=== PATIENT | female | born 1935 | race Caucasian/White ===

== ENCOUNTER 2017-01-26 13:02 | Outpatient (CLI) | payer MEDICARE, BC ==
--- NOTE | 2017-01-26 15:25 | Mammography Report ---
DIGITAL DIAGNOSTIC BILATERAL MAMMOGRAM: 01/26/2017 CLINICAL INDICATION: An 81-year-old with perceived size increase of the left breast. COMPARISON: The patient had previous mammograms in [place], but cannot recall where they were perform ed. If records in your office indicate where the mammograms were performed, we would be happy to try to obtain them for direct comparison. Otherwise, this will serve as a new baseline. TECHNIQUE: Bilateral CC and MLO views, left true lateral view. The patient could not identify a focal palpable abnormality at the time of the examination, so no marker was placed. The patient also relates a history of benign excisional biopsy of the right breast many years ago. FINDINGS: The breasts demonstrate scattered fibroglandular densities bilaterally. A few punctate, ty pically benign calcifications are present. No suspicious masses, clustered microcalcifications, or re gions of architectural distortion are identified. IMPRESSION: BENIGN FINDINGS. RECOMMENDATION: ROUTINE ANNUAL SCREENING UNLESS OTHERWISE CLINICALLY INDICATED. BIRADS CATEGORY 2-BENIGN FINDINGS. STANDARD QUALIFYING STATEMENTS 1. This examination was reviewed with the aid of Computer-Aided Detection (CAD). 2. A negative or benign imaging report should not delay biopsy if clinically suspicious findings are present. Consider surgical consultation if warranted. More than 5% of cancers are not identified by i maging. 3. Dense breasts may obscure an underlying neoplasm. JOB #: [id number] EXT JOB #:
== END 2017-01-26 13:03 | disposition home or self-care (01) ==
LOC: DI 13:02
PROVIDERS: ATTEND Internal Medicine
DX: N64.4 Mastodynia (principal); N64.59 Other signs and symptoms in breast
CPT/HCPCS: 77066

== ENCOUNTER 2017-04-06 16:52 | Outpatient (CLI) | payer MEDICARE, BC ==
--- NOTE | 2017-04-07 19:47 | XRAY Report ---
DATE OF SERVICE: 04/06/2017 BILATERAL SACROILIAC JOINTS: 04/06/2017 CLINICAL INDICATION: Pain for 2 weeks. FINDINGS: AP and bilateral oblique views of the sacroiliac joints were obtained. There is no eviden ce of sacral fracture. The sacroiliac joints appear unremarkable. No erosion or effusion is identified. Degenerative changes are noted in the lower lumbar spine. IMPRESSION: Normal sacroiliac joints. TD: 04/07/2017 09:51
== END 2017-04-06 16:53 | disposition home or self-care (01) ==
LOC: DI 16:52
PROVIDERS: ATTEND Nurse Practitioner Family
DX: M54.5 Low back pain (principal)
CPT/HCPCS: 72202

== ENCOUNTER 2018-02-14 13:25 | Outpatient (CLI) | payer MEDICARE, BC | END 2018-02-14 13:26 | disposition home or self-care (01) | LOC: SC 13:25 | PROVIDERS: ATTEND Internal Medicine Pulmonary Disease | DX: G47.33 Obstructive sleep apnea (adult) (pediatric) (principal) | CPT/HCPCS: 99203; G0463; 99212 ==

== ENCOUNTER 2018-03-21 19:08 | Outpatient (CLI) | payer MEDICARE, BC | END 2018-03-21 19:09 | disposition home or self-care (01) | LOC: SC 19:08 | PROVIDERS: ATTEND Internal Medicine Pulmonary Disease | DX: G47.33 Obstructive sleep apnea (adult) (pediatric) (principal); G47.61 Periodic limb movement disorder | CPT/HCPCS: 95810 ==

== ENCOUNTER 2018-04-26 14:07 | Outpatient (CLI) | payer MEDICARE, BC | END 2018-04-26 14:08 | disposition home or self-care (01) | LOC: SC 14:07 | PROVIDERS: ATTEND Nurse Practitioner Family | DX: G47.33 Obstructive sleep apnea (adult) (pediatric) (principal); G47.61 Periodic limb movement disorder; I49.9 Cardiac arrhythmia, unspecified | CPT/HCPCS: 99214; G0463; 99212 ==

== ENCOUNTER 2018-06-27 12:57 | Outpatient (CLI) | payer MEDICARE, BC | END 2018-06-27 12:58 | disposition home or self-care (01) | LOC: DI 12:57 | PROVIDERS: ATTEND Internal Medicine | DX: I10 Essential (primary) hypertension (principal) | CPT/HCPCS: 93306 ==

== ENCOUNTER 2018-08-08 14:22 | Outpatient (CLI) | payer MEDICARE, BC | END 2018-08-08 14:23 | disposition home or self-care (01) | LOC: SC 14:22 | PROVIDERS: ATTEND Internal Medicine Pulmonary Disease | DX: G47.33 Obstructive sleep apnea (adult) (pediatric) (principal) | CPT/HCPCS: 99213; G0463; 99212 ==

== ENCOUNTER 2019-04-24 10:18 | Outpatient (CLI) | payer MEDICARE, BC ==
--- NOTE | 2019-04-24 16:12 | Mammography Report ---
Reason: LUMP IN LT BREAST Procedure Date: 04/24/2019 Accession Number: [id number] / [id number] Procedure: MICHAEL - Diagnostic Dig Bilat CPT Code: Final Report FULL RESULT: EXAM: Diagnostic Dig Bilat DATE: 04/24/2019 10:56 AM CLINICAL HISTORY: Diagnostic examination. Palpable lump in the left breast. TECHNIQUE: (B) - Bilateral CC and MLO views were obtained. Left spot CC and left LM images as well as left spot MLO images are obtained. Focused left breast ultrasound is performed. COMPARISON: 01/26/2017. PARENCHYMAL PATTERN: (A) - The breast(s) demonstrate(s) scattered fibroglandular densities. FINDINGS: In the left breast inferomedially, 7.9 cm from the nipple is a hyperdense spiculated mass with architectural distortion which measures at least 2.0 x 2.2 cm and is confirmed by focused left breast ultrasound which demonstrates a shadowing ill-defined hypoechoic mass with increased vascularity, highly suspicious for malignancy. There are no suspicious masses, calcifications, or areas of distortion in the right breast. IMPRESSION: Highly suggestive for malignancy. BI-RADS category 5. RECOMMENDATION: (BIOPSY) - left breast ultrasound-guided. BI-RADS CATEGORY: (5) - Highly suggestive for malignancy. STANDARD QUALIFYING STATEMENTS: 1. This examination was not reviewed with the aid of Computer-Aided Detection (CAD). 2. A negative or benign imaging report should not preclude biopsy if clinically suspicious findings are present. 3. Dense breasts may obscure an underlying neoplasm. 4. This examination was reviewed with the aid of 3D breast imaging (tomosynthesis).
== END 2019-04-24 10:19 | disposition home or self-care (01) ==
LOC: DI 10:18
PROVIDERS: ATTEND Nurse Practitioner Family
DX: N63.24 Unspecified lump in the left breast, lower inner quadrant (principal)
CPT/HCPCS: 76642; 77066

== ENCOUNTER 2019-05-09 10:58 | Outpatient (CLI) | payer MEDICARE, BC ==
[2019-05-09] MEDS ORDERED: BUFFERED LIDOCAINE 10 ML SYRINGE ONE (11:47)
[2019-05-09] MEDS ORDERED: BUFFERED LIDOCAINE 10 ML SYRINGE IU ONE (16:35)
--- NOTE | 2019-05-10 09:12 | Ultrasound Report ---
Reason: ABNORMAL MAMMOGRAM Procedure Date: 05/09/2019 Accession Number: [id number] / [id number] Procedure: US - Biopsy Breast Core CPT Code: Final Report FULL RESULT: PROCEDURE: Ultrasound-guided needle biopsy left breast mass. CLINICAL DATA: Targeted mass measuring 2.1 x 0.6 and 1.8 x 1.3 cm with irregular margins in the 6 o'clock axis of the left breast. Informed consent was obtained. Using standard aseptic technique, 1% buffered lidocaine was injected into the left breast for local anesthesia. A small delgado was made in the skin with a #11 blade. A 12-gauge [employer] vacuum-assisted device was used to obtain 3 specimens each from the main mass as well as the fingerlike projection adjacent. A specialized biopsy marker clip was placed into the biopsy cavity under ultrasound guidance. The patient was taken to separate mammography machine and a two-view digital mammography was performed to verify the clip placement and any complications. The mammography showed concordant clip placement for both positions. The wound was dressed and ice applied. The patient was observed for approximately 15 minutes, then was discharged from diagnostic imaging Department in good condition following instructions on wound care and obtaining biopsy results. The patient is scheduled to receive the biopsy results from the referring physician. The tissue was sent for histologic analysis. IMPRESSION: Ultrasound-guided biopsy of the left breast. AN ADDENDUM WILL BE MADE TO THIS REPORT WHEN PATHOLOGY IS REVIEWED TO ESTABLISH CONCORDANCE.
== END 2019-05-09 10:59 | disposition home or self-care (01) ==
LOC: DI 10:58
PROVIDERS: ATTEND Nurse Practitioner Family
DX: C50.512 Malignant neoplasm of lower-outer quadrant of left female breast (principal); Z17.1 Estrogen receptor negative status [ER-]
CPT/HCPCS: 19083

== ENCOUNTER 2019-05-21 07:39 | Outpatient (CLI) | payer MEDICARE, BC ==
[2019-05-21 08:17] LABS: BASOPHILS # (AUTO) 0.1 10^3/uL (0.0-0.1); BASOPHILS % (AUTO) 1.1 %; EOSINOPHILS # (AUTO) 0.2 10^3/uL (0.0-0.7); EOSINOPHILS % (AUTO) 2.8 %; HGB - HEMOGLOBIN 13.2 g/dL (12.0-16.0); LYMPHOCYTES # (AUTO) 1.7 10^3/uL (1.5-3.5); LYMPHOCYTES % (AUTO) 21.3 %; MEAN CORPUSCULAR HEMOGLOBIN 30.5 pg (27.0-31.0); MEAN CORPUSCULAR HGB CONC 32.6 g/dL (32.0-36.0); MEAN CORPUSCULAR VOLUME 93.5 fL (81.0-99.0); MEAN PLATELET VOLUME 8.8 fL (7.9-10.8); MONOCYTES # (AUTO) 0.7 10^3/uL (0.0-1.0); MONOCYTES % (AUTO) 9.3 %; NEUTROPHILS # (AUTO) 5.1 10^3/uL (1.5-6.6); NEUTROPHILS % (AUTO) 65.1 %; PLT - PLATELET COUNT 267 10^3/uL (130-450); RED BLOOD COUNT 4.33 10^6/uL (4.20-5.40); RED CELL DISTRIBUTION WIDTH 13.1 % (12.0-15.0); WHITE BLOOD COUNT 7.9 x10^3/uL (4.8-10.8)
[2019-05-21 08:33] LABS: ALBUMIN 4.1 g/dL (3.2-5.5); ALBUMIN/GLOBULIN RATIO 1.4 (1.0-2.2); BILIRUBIN,TOTAL 0.5 mg/dL (0.2-1.0); CALCIUM 9.3 mg/dL (8.5-10.3)
[2019-05-21] MEDS ORDERED: GADOBUTROL 7.5 MMOL/7.5 ML VIAL ONE (17:45)
[2019-05-21] MEDS ORDERED: GADOBUTROL 7.5 MMOL/7.5 ML VIAL IVP ONE (18:32)
--- NOTE | 2019-05-25 15:50 | MRI Report ---
Reason: LT BREAST CA Procedure Date: 05/21/2019 Accession Number: [id number] / [id number] Procedure: MRI - Breast W/WO Cont CPT Code: 91563 Final Report FULL RESULT: EXAM: BILATERAL BREAST MRI WITHOUT AND WITH CONTRAST WITH CHEST WITHOUT CONTRAST EXAM DATE: 05/21/2019 07:08 PM CLINICAL HISTORY: The patient is an 83-year-old female recently diagnosed with left breast cancer (IDCA - multifocal). Pretreatment MRI requested to assess extent of disease. TECHNIQUE: Body Coil: (Limited chest MRI)- Coronal LFOV STIR Dedicated breast coil: Axial - precontrast STIR Axial - postcontrast sequential 1 minute three-dimensional FLASH (x 5) Axial - high-resolution volumetric water stimulation acquisition (VIEWS) CONTRAST USED: 6 mL Gadavist. POSTPROCESSING: Subtraction dynamic/curve analysis and multiplanar reformations with CAD stream FINDINGS: Background parenchyma: There are scattered fibroglandular densities with minimal enhancement. Right breast: There is no focus of suspicious mass or non-mass enhancement, parenchymal distortion, skin thickening. There are no enlarged axillary or intramammary lymph nodes. Left breast: There are two adjacent hypervascular and spiculated masses at the sites of biopsy proven malignancy containing microclips in the 6 o'clock anterior/middle position at the sites of biopsy-proven malignancy. These span 5 cm in maximal net anterior to posterior dimension. There is additional focal clumped nonmass enhancement in the upper outer quadrant 7 cm from the nipple. This is positioned 3 cm cranial to the biopsy proven mass(es) measuring up to 5 cm in maximal dimension; reference thin MIP axial image 69. This may represent regional DCIS. Recommend targeted pathologic evaluation to exclude multicentric disease. Thereare no additional dominant foci of mass or non-mass enhancement, distortion or skin thickening. There are no pathologically enlarged axillary or intramammary lymph nodes. IMPRESSION: RIGHT BREAST: Negative. BI-RADS 1 No suspicious findings. LEFT BREAST: Known malignancy. BI-RADS 6 The biopsy-proven sites of malignancy are confirmed in the 6 o'clock position spanning 5.0 cm in net anterior to posterior dimension. There is additional focal nomass enhancement in the upper outer quadrant, as described. 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 Recommend pathologic evaluation if planning for conservation therapy. This is amenable to MRI guided biopsy. There are no pathologically enlarged axillary lymph nodes. COMMENT: The literature indicates that a negative dynamic breast MRI has a high sensitivity and specificity for the detection of invasive carcinoma (to a threshold of 5 mm). MRI is not reliably sensitive for detecting ductal carcinoma in situ or large invasive neoplasms with only minimal enhancement (i.e. mucinous carcinoma). Normal-appearing lymph nodes on MRI may contain microscopic tumor. Appropriate clinical mammographic and sonographic followup should be performed if recommended. Negative MRI should not dissuade further evaluation of any suspicious mammographic calcifications and/or worrisome palpable masses.
== END 2019-05-21 07:40 | disposition home or self-care (01) ==
LOC: DI 07:39
PROVIDERS: ATTEND Nurse Practitioner Family
DX: C50.512 Malignant neoplasm of lower-outer quadrant of left female breast (principal)
CPT/HCPCS: 36415; 77049; 80053; 85025; A9585

== ENCOUNTER 2019-05-25 09:27 | Outpatient (CLI) | payer MEDICARE, BC | END 2019-05-25 09:28 | disposition home or self-care (01) | LOC: RT 09:27 | PROVIDERS: ATTEND Surgery | DX: Z01.818 Encounter for other preprocedural examination (principal); C50.912 Malignant neoplasm of unspecified site of left female breast | CPT/HCPCS: 93005 ==

== ENCOUNTER 2019-05-28 08:09 | Day surgery (SDC) | payer MEDICARE, BC ==
[2019-05-28] MEDS ORDERED: LACTATED RINGERS 1,000 ML IV ONE ×2 (08:15→13:45)
[2019-05-28] MEDS ORDERED: CEFAZOLIN SODIUM IN 0.9 % NACL 2 GM/100 ML BAG IV ONE (08:47)
[2019-05-28] MEDS ORDERED: BUFFERED LIDOCAINE 10 ML SYRINGE ONE (09:32)
[2019-05-28] MEDS ORDERED: SODIUM CHLORIDE 0.9% 10 ML ONE (10:20)
--- NOTE | 2019-05-28 11:09 | ANESTHESIA ---
Pre-Anesthesia VS, & Labs - Diagnosis Left breast cancer - Procedure Left mastectomy with axillary sentinel lymph node dissection and right port placement Vital Signs: Temp Pulse Resp BP Pulse Ox 36.3 C L 62 18 148/77 H 97 05/28/19 08:21 05/28/19 08:21 05/28/19 08:21 05/28/19 08:21 05/28/19 08:21 Height 5 ft 1 in Weight (kg) 62.1 kg - NPO >8 hours - Is Patient ?: Not Applicable Home Medications and Allergies Home Medications: Ambulatory Orders Buspirone HCl 10 mg PO DAILY 05/25/19 Escitalopram [Lexapro] 20 mg PO DAILY 05/25/19 Losartan Potassium 25 mg PO DAILY 05/25/19 Omeprazole 20 mg PO DAILY 05/25/19 Valacyclovir HCl [Valacyclovir] 1,000 mg PO DAILY PRN 05/25/19 Buspirone HCl 10 mg PO DAILY 05/25/19 Escitalopram [Lexapro] 20 mg PO DAILY 05/25/19 Losartan Potassium 25 mg PO DAILY 05/25/19 Omeprazole 20 mg PO DAILY 05/25/19 Valacyclovir HCl [Valacyclovir] 1,000 mg PO DAILY PRN 05/25/19 Allergies/Adverse Reactions: Allergies Allergy/AdvReac Type Severity Reaction Status Date / Time No Known Drug Allergies Allergy Verified 05/25/19 11:50 Anes History & Medical History - Anesthetic History Anesthesia Complications: reports: No previous complications - Medical History Cardiovascular: reports: Murmur (ECHO was negative for valve disease) Pulmonary: reports: Sleep apnea, CPAP use Gastrointestinal: reports: GERD (controlled with medicatation) Urinary: reports: None Neuro: reports: None Musculoskeletal: reports: Osteoarthritis Endocrine/Autoimmune: reports: None Blood Disorders: reports: None Skin: reports: None Smoking Status: Former smoker (Quit 5 years ago. 32 year pack history) Psychosocial: reports: No issues indicated - Surgical History Gynecologic: Other (breast lumpectomy) Results - EKG Results EKG Comparison: Reviewed EKG - Echo Results Echo Results: Report reviewed Exam General: Alert, Oriented x3, Cooperative, No acute distress Dental: WNL Mouth Openin Fingerbreadth Neck Mobility: Normal Mallampati classification: III Thyromental Distance: greater than 6 cm Respiratory: Lungs clear, Normal breath sounds, No respiratory distress, No accessory muscle use Cardiovascular: Regular rate, Normal S1, Normal S2, No murmurs Mental/Cognitive Status: Alert/Oriented X3, Normal for patient Plan Anesthesia Type: General Consent for Procedure(s) Verified and Reviewed: Yes Code Status: Attempt Resuscitation ASA classification: 2-Mild systemic disease Is this case an emergency?: No
[2019-05-28] MEDS: LIDOCAINE 1%-EPI 1:100000 20 ML MDV ONE ×2 (11:35→12:13)
[2019-05-28] MEDS: BUPIVACAINE 0.5% PF 30 ML VIAL ONE ×2 (11:35→12:13)
[2019-05-28] MEDS ORDERED: MIDAZOLAM 2 MG/2 ML VIAL IVP ONE (11:44)
[2019-05-28] MEDS ORDERED: GLYCOPYRROLATE 1 MG/5 ML VIAL IVP ONE (11:44)
[2019-05-28] MEDS ORDERED: PROPOFOL 200 MG/20 ML VIAL IVP ONE (11:44)
[2019-05-28] MEDS ORDERED: DEXAMETHASONE 4 MG/ML VIAL IVP ONE (11:44)
[2019-05-28] MEDS ORDERED: fentaNYL 100 MCG/2 ML VIAL IVP ONE (11:44)
[2019-05-28] MEDS ORDERED: LIDOCAINE-MPF 2% 5 ML VIAL IM ONE (11:44)
[2019-05-28] MEDS ORDERED: ePHEDrine 50 MG/ML VIAL IVP ONE (11:44)
--- NOTE | 2019-05-28 13:38 | OPERATIVE REPORT ---
Operative Report - General Procedure Date: 05/28/19 Planned Procedure: Right power port placement Left sentinel node biopsy and simple mastectomy Pre-Op Diagnosis: Multifocal left breast cancer Procedure Performed: Attempted but aborted right port placement No sentinel node identified so sentinel node procedure aborted. Left total mastectomy Post Op Diagnosis: Multifocal left breast cancer - Procedure Note Primary Surgeon: Khushbu Anesthesia Provider: LISA Santiago Anesthesia Technique: General LMA, Local Estimated Blood Loss (mL): 20 Drain/Tube Type: Lawrence drain (19F in the inframmary pocket on the left side) Indications: Multifocal left breast cancer Findings: 1. Right subclavian vein accessed one time. The stick was lost while placing the wire and could not be reobtained after multiple attempts. Procedure aborted 2. No sentinel node identified. Complications: Unable to complete port placement - Other Other Information/Narrative: After obtaining informed consent, the patient is brought to the operating room and placed in the supine position on the operating table. Following successful induction of general anesthesia, appropriate padding of all bony prominences, and placement of appropriate monitors, the bilateral chest and neck were prepped and draped in the standard surgical fashion. A timeout was held per scope protocol. All elements of the surgical safety checklist were followed before, during, and after the procedure. Began the procedure by placement of a right Port-A-Cath. The subclavian vein was accessed using the Seldinger technique in the right deltopectoral deltopectoral groove. A pocket was created for placement of the wire 3 cm inferior to the access site. The port was sewn into place in the pocket and the tubing threaded through to the site of the wire. As the wire was withdrawn for placement of the catheter the stick was lost. Multiple attempts were undertaken to get access back to the subclavian vein but these were unsuccessful. We elected to abort the procedure for patient safety and will plan to repeat in 2 to 3 weeks when she is healing from her mastectomy. The port was removed, the incisions were closed in 2 layers and Dermabond was applied. We turned our attention to the left side Using the neoprobe, we attempted to map the lymphatic system even though we were not able to see any evidence of sentinel node on the nuclear medicine study. We did obtain a few readings from the mid chest area. The axilla was 0 and the neck and supraclavicular region also a rating of 0. The tumor itself had a 1 second reading of 1800. Background in the room was 0. Because this procedure did not identify a sentinel node, this portion of the planned surgical intervention was aborted. We continued now with a left mastectomy. An elliptical incision was fashioned to include the nipple areolar complex on the left side. A 10 blade scalpel was used to take this incision through the skin and into the subcutaneous tissue. Traction and countertraction were used to liberate the breast and underlying tissue from the overlying dermis and skin in a circumferential fashion. Dissection planes were carried out to the sternum medially, the clavicle superiorly, the axilla laterally, and the inframammary fold inferiorly. The breast was then removed in a medial to lateral fashion including the axillary tail. The wound was then checked for hemostasis and irrigated with warm water. It was aspirated free of all fluid and checked once again. We were satisfied that our hemostasis was adequate, the wound was closed in layers with Vicryl sutures and the Endsorb device. Dermabond was applied to the skin. All sponge, needle, and instrument counts were correct at the conclusion of the case. The patient was allowed awaken from anesthesia without difficulty and taken to the postanesthesia care unit in good condition.
[2019-05-28] MEDS ORDERED: oxyCODONE 5 MG TABLET PO PRN (13:46)
[2019-05-28] MEDS ORDERED: SODIUM CHLORIDE FLUSH 0.9% 10 ML SYRINGE IVP PRN (13:46)
[2019-05-28] MEDS ORDERED: ONDANSETRON 4 MG/2 ML VIAL IVP PRN (13:46)
[2019-05-28] MEDS ORDERED: ACETAMINOPHEN 325 MG TABLET PO PRN (13:46)
[2019-05-28] MEDS ORDERED: HYDROmorphone 1 MG/ML CARPUJECT IVP PRN (13:46)
[2019-05-28] MEDS ORDERED: valACYclovir 500 MG TABLET PO PRN (13:58)
[2019-05-28] MEDS: HYDROmorphone 0.5 MG/0.5 ML SYRINGE ONE ×2 (14:17→14:26)
[2019-05-28] MEDS ORDERED: HYDROmorphone 0.5 MG/0.5 ML SYRINGE IVP PRN (16:42)
[2019-05-28] MEDS: SODIUM CHLORIDE FLUSH 0.9% 10 ML SYRINGE IVP SCH (17:03)
[2019-05-28] MEDS: PANTOPRAZOLE 40 MG TABLET PO SCH (17:03)
[2019-05-29] MEDS: SODIUM CHLORIDE FLUSH 0.9% 10 ML SYRINGE IVP SCH ×2 (00:05→09:54)
[2019-05-29] MEDS: PANTOPRAZOLE 40 MG TABLET PO SCH (06:46)
--- NOTE | 2019-05-29 08:16 | XRAY Report ---
Reason: placement of power port Procedure Date: 05/28/2019 Accession Number: [id number] / [id number] Procedure: FL - OR C-Arm Procedure CPT Code: Final Report FULL RESULT: EXAM: FLUOROSCOPIC GUIDANCE EXAM DATE: 05/28/2019 12:29 PM. CLINICAL HISTORY: Placement of power port. COMPARISON: None. FINDINGS: One image saved. Fluoroscopy time less than 1 second. IMPRESSION: Fluoroscopic guidance provided for placement of PowerPort. Total fluoroscopy time: Less than 1 second. Number of images: 1. RADIA
[2019-05-29] MEDS ORDERED: LOSARTAN 50 MG TABLET PO SCH (09:00)
[2019-05-29] MEDS ORDERED: busPIRone 5 MG TABLET PO SCH (09:00)
[2019-05-29] MEDS ORDERED: ESCITALOPRAM 10 MG TABLET PO SCH (09:00)
[2019-05-29 10:04] VITALS: BP 129/53
--- NOTE | 2019-05-29 12:23 | Discharge Plan ---
Discharge Plan Problem Reviewed?: Yes Disposition: 06 Home Health Service Prescriptions: traMADol [Ultram] 50 mg PO Q4-6H PRN #14 tablet PRN Reason: Pain Diet: Regular Activity Restrictions: Additional Comments (Limit the use of her left arm.) Shower Restrictions: No Driving Restrictions: Yes Plan of Treatment: Supportive care and drain management during the period of healing. Other treatment to be determined by pathology result. Assessment: Healing as expected after left mastectomy No Smoking: If you smoke, Please STOP! Call for help. Follow-up with: RUPINDER REAL ARNP [Primary Care Provider] - Roddy Ríos MD [Provider Admit Priv/Credential] -
--- NOTE | 2019-05-29 12:29 | DISCHARGE SUMMARY ---
"Discharge Summary Admit Date: 05/28/19 Discharge Date: 05/29/19 Discharging Provider: Khushbu Primary Care Provider: Mike Condition at Discharge: Stable Discharge Disposition: Home Health Service - DIAGNOSES Admission Diagnoses: Left breast cancer Discharge Diagnoses with Status of Each Condition: Left breast cancer - improved after left mastectomy - HPI History of Present Illness: Mirna is an 83 year old lady recently diagnosed with left breast cancer. Mammogram revealed a dominant mass with 3 surrounding sattelite nodules. She had a biopsy revealing an ER/MA neg and HER 2 positive malignancy. On the date of admission, she presented to the hospital for left breast mastectomy with sentinel node biopsy and port placement. - CONSULTS | PROCEDURES Consultations: Home Health Procedures: 1. Attempted right port placement - procedure aborted 2. [place] node injection and mapping. 3. Left breast simple mastectomy - HOSPITAL COURSE Hospital Course: On the morning of admission, Mirna was taken to the operating room for the referenced procedure. Right subclavian port placement was aborted for reasons delinieated in the operative report. [place] node mapping revealed to drainage to the axillary nodes so a sentinel node was not obtained at the time of the operation. Mapping with the Neoprobe in the operating room revealed weak uptake in the region of the internal thoracic chain. Simple mastectomy on the left side was uneventful. Due to generalized weakness and memory loss, I chose to keep Mirna in the hospital overnight. This morning she denies any pain. Drainage is serous. She is weak but has been able to ambulate to the bathroom without assistance. She has required assistance to ambulate in the halls. She is being discharged to her home. 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 She has a fresh wound with a drain in place that will require management. She is home bound due to her considerable weakness and the considerable taxing effort required to leave the house. I have requested Home Health services to assist with wound management and drain care. - ALLERGIES Allergies/Adverse Reactions: Allergies Allergy/AdvReac Type Severity Reaction Status Date / Time No Known Drug Allergies Allergy Verified 05/25/19 11:50 - MEDICATIONS Home Medications: Ambulatory Orders Medication Instructions Recorded Confirmed Buspirone HCl 10 mg PO DAILY 05/25/19 05/25/19 Escitalopram [Lexapro] 20 mg PO DAILY 05/25/19 05/25/19 Losartan Potassium 25 mg PO DAILY 05/25/19 05/25/19 Omeprazole 20 mg PO DAILY 05/25/19 05/25/19 Valacyclovir HCl [Valacyclovir] 1,000 mg PO DAILY PRN 05/25/19 05/25/19 traMADol [Ultram] 50 mg PO Q4-6H PRN #14 tablet 05/29/19 Home Medications Other | Comments: Allergies No Known Drug Allergies Allergy (Verified 05/25/19 11:50) Home Medications Buspirone HCl 10 mg PO DAILY 05/25/19 Escitalopram [Lexapro] 20 mg PO DAILY 05/25/19 Losartan Potassium 25 mg PO DAILY 05/25/19 Omeprazole 20 mg PO DAILY 05/25/19 Valacyclovir HCl [Valacyclovir] 1,000 mg PO DAILY PRN 05/25/19 traMADol [Ultram] 50 mg PO Q4-6H PRN #14 tablet 05/29/19 Active Medications Acetaminophen (Tylenol) 650 mg PO Q4HR PRN PRN Reason: PAIN Buspirone HCl (Buspar) 10 mg PO DAILY [facility] Last Admin: 05/29/19 09:53 Dose: Not Given Escitalopram Oxalate (Lexapro) 20 mg PO DAILY [facility] Last Admin: 05/29/19 09:53 Dose: Not Given Hydromorphone HCl (Dilaudid Inj Syringe) 0.5 mg IVP Q2HR PRN PRN Reason: PAIN Losartan Potassium (Cozaar) 25 mg PO DAILY [facility] Last Admin: 05/29/19 09:53 Dose: Not Given Ondansetron HCl (Zofran Inj) 4 mg IVP Q6H PRN PRN Reason: Nausea / Vomiting Oxycodone HCl (Roxicodone) 5 mg PO Q4HR PRN PRN Reason: PAIN Last Admin: 05/28/19 21:40 Dose: 5 mg Pantoprazole Sodium (Protonix) 40 mg PO QDAC [facility] Last Admin: 05/29/19 06:46 Dose: 40 mg Sodium Chloride (Normal Saline Flush 0.9%) 10 ml IVP 0100,0900,1700 [facility] Last Admin: 05/29/19 09:54 Dose: 10 ml Sodium Chloride (Normal Saline Flush 0.9%) 10 ml IVP PRN PRN PRN Reason: NEEDED PER PROVIDER ORDERS Valacyclovir HCl (Valtrex) 1,000 mg PO DAILY PRN PRN Reason: NEEDED PER PROVIDER ORDERS - PHYSICAL EXAM AT DISCHARGE General Appearance: positive: No acute distress, Alert Eyes Bilateral: positive: Normal inspection, PERRL, EOMI ENT: positive: ENT inspection nml Neck: positive: Nml inspection, No JVD Respiratory: positive: Chest non-tender, No respiratory distress, Breath sounds nml Cardiovascular: positive: Regular rate & rhythm Peripheral Pulses: positive: 0 Abdomen: positive: Non-tender, Nml bowel sounds Skin: positive: Color nml, Warm Extremities: positive: Non-tender Neurologic/Psychiatric: positive: Oriented x3 Physical Exam Other/Comments: Right and left chest incisions are intact with mild bruising. Skin is all vascularized and viable. Drain site is clean and the drainage is serous. - QUALITY (Female Hip Fx Only) Was patient sent home on osteoporosis medication?: No - FOLLOW UP Follow Up: Dr. Ríos in 1 week. - TIME SPENT Time Spent in Discharge (Minutes): 25"
== END 2019-05-29 14:22 | disposition home health service (06) ==
LOC: SDS 08:09 → MS2 15:44 → SDS 05-29 14:22
PROVIDERS: ATTEND Surgery
PROC: 0HTU0ZZ Resection of Left Breast, Open Approach (ICD-10-PCS; principal; 2019-05-28 09:45)
DX: C50.812 Malignant neoplasm of overlapping sites of left female breast (principal); R94.31 Abnormal electrocardiogram [ECG] [EKG]; I10 Essential (primary) hypertension; E78.5 Hyperlipidemia, unspecified; G47.30 Sleep apnea, unspecified; K21.9 Gastro-esophageal reflux disease without esophagitis; F32.9 Major depressive disorder, single episode, unspecified; R32 Unspecified urinary incontinence; R41.3 Other amnesia; Z87.891 Personal history of nicotine dependence; R01.1 Cardiac murmur, unspecified; Z17.1 Estrogen receptor negative status [ER-]
CPT/HCPCS: 19303; 36561; 78195; A9270; J0690; J1170; J7120

== ENCOUNTER 2019-05-28 08:54 | Day surgery (SDC) | payer MEDICARE, BC ==
--- NOTE | 2019-05-28 11:46 | Nuclear Medicine Report ---
Reason: LT BREAST CA Procedure Date: 05/28/2019 Accession Number: [id number] / [id number] Procedure: NM - Lymph Node Scintigraphy CPT Code: Final Report FULL RESULT: EXAM: SENTINEL LYMPH NODE RADIOTRACER INJECTION WITH IMAGING EXAM DATE: 05/28/2019 11:18 AM. CLINICAL HISTORY: Breast cancer. COMPARISON: None. TECHNIQUE: Left breast sentinel node injection was performed according to protocol with 0.4 mCi technetium 99m sulfur colloid. After appropriate delay, the patient was imaged according to the protocol. FINDINGS IMPRESSION: No axillary foci of uptake are seen compatible with sentinel nodes through 75 minutes postinjection. RADIA
--- NOTE | 2019-05-28 12:01 | POST OP PROGRESS NOTE ---
Subjective - General Procedure Date: 05/28/19 Post Op Days: 0 Procedure Performed: [place] node mapping injection - Review of Systems Wound/Incisions: positive: Other (No wounds) General: positive: No symptoms HEENT: positive: No symptoms Pulmonary: positive: No symptoms Cardiovascular: positive: No symptoms Gastrointestinal: positive: No symptoms Genitourinary: positive: No symptoms Musculoskeletal: positive: No symptoms Skin: positive: No symptoms All Other Systems: positive: Reviewed and negative - Other Other Information/Narrative: After obtaining informed consent,The patient was brought to the eye suite and placed in the supine position. The left breast was prepped and draped in the standard surgical fashion.1 mCi of technetium sulfur colloid mixed with 1% lidocaine was injected in the subareolar area in a circumferential fashion. Imaging followed for 90 minutes and did not reveal migration of the material to any david structure.The patient tolerated the procedure well and was returned to the preop holding area.
== END 2019-05-28 08:55 | disposition home or self-care (01) ==
LOC: DI 08:54
PROVIDERS: ATTEND Surgery
DX: C50.912 Malignant neoplasm of unspecified site of left female breast (principal)
CPT/HCPCS: 78195

== ENCOUNTER 2019-07-13 08:07 | Outpatient (CLI) | payer MEDICARE, BC ==
[2019-07-13 09:41] LABS: CREATININE 0.8 mg/dL (0.4-1.0)
[2019-07-13] MEDS ORDERED: GADOBUTROL 7.5 MMOL/7.5 ML VIAL ONE (09:56)
[2019-07-13] MEDS ORDERED: GADOBUTROL 7.5 MMOL/7.5 ML VIAL IVP ONE (10:49)
--- NOTE | 2019-07-13 12:57 | MRI Report ---
Reason: MEMORY IMPAIRMENT Procedure Date: 07/13/2019 Accession Number: [id number] / [id number] Procedure: MRI - Brain W/WO CPT Code: Final Report FULL RESULT: EXAM: MRI BRAIN WITHOUT AND WITH CONTRAST EXAM DATE: 07/13/2019 11:08 AM. CLINICAL HISTORY: MEMORY IMPAIRMENT. COMPARISON: None. TECHNIQUE: Multiplanar, multisequence T1-weighted and fluid-sensitive MR sequences of the brain were performed before and after administration of intravenous contrast. Sequences optimized for routine evaluation. Other: None. IV Contrast: 6 mL GADAVIST . FINDINGS: Parenchyma: No restricted diffusion. No evidence of prior large vascular territory infarct. Confluent areas of high T2 signal involving white matter of bilateral cerebral hemispheres. A mm enhancing nodule overlying right anterior frontal lobe (series 1102, image 54). Ventricles/Cisterns: Moderate enlargement of lateral ventricles. Barboza ratio 0.41. Similar prominence of sulci. No mass-effect. No midline shift. No evidence of extra-axial fluid collection. Orbits: Symmetric and unremarkable. Sella Turcica: Unremarkable. IAC: Symmetric and unremarkable. Vasculature: Normal signal flow void is seen in the major arterial structures at the skull base. The dural sinuses are patent and enhance normally. Sinuses: No acute sinus disease. Bones: No focal pathologic appearing marrow signal changes. Other: None. IMPRESSION: 1. No evidence of infarct or other acute intracranial process. 2. Severe microvascular white matter disease 3. Moderate ventriculomegaly consistent with diffuse volume loss. 4. Incidental 8 mm right frontal meningioma. No associated mass-effect. RADIA
== END 2019-07-13 08:08 | disposition home or self-care (01) ==
LOC: LAB 08:07
PROVIDERS: ATTEND Surgery
DX: C50.912 Malignant neoplasm of unspecified site of left female breast (principal); R41.3 Other amnesia; R90.82 White matter disease, unspecified; G93.89 Other specified disorders of brain
CPT/HCPCS: 36415; 70553; 82565; A9585

== ENCOUNTER 2019-08-06 16:00 | Outpatient (CLI) | payer MEDICARE, BC ==
--- NOTE | 2019-08-06 17:18 | SLEEP CARE CONSULTATION ---
Information from patient questionnaire entered by Nikki Hensley. I have reviewed and concur with the information entered by Nikki Hensley. This document represents the service I personally performed and the decisions made by me, Deepthi Jara, RN, MSN, BUSINESS ANALYTICS SPECIALIST. History of Present Illness Service Date and Time: 08/06/2019 1600 Previous diagnosis: Moderate, Obstructive Sleep Apnea-Hypopnea Syndrome AHI: 20.1 Reason for follow up: annual (patient would like to stop CPAP therapy, has not used machine since April) Equipment type: CPAP Equipment obtained from: [facility] additional information: Patient contacted office to stop CPAP therapy. Last used in April. She feels there is no benefit with use. She is still fatigued and does not want to continue. She voices no particular problem with treatment except does not want to use if no benefit. She states she used it to see if there would be less fatigue and feels she has tried it long enough. She also reports she knows fatigue could have been from her cancer but still fatigued and requiring extra sleep. Since April, she noted left breast tenderness and found a mass with self examination. Since then she had a partial mastectomy 05/28/19. Last scan showed she was cancer free. Brain scan also negative but states memory is not as good. CPAP Compliance Data - Data Reviewed with Patient Average duration of nightly device use: 6H 44M Compliance rate %: 56.7 (stopped usage in April, report from 04/11/19-05/10/19) Current pressure setting (cmH2O): 9-15 Humidity settin Heated hose settin Average residual AHI: 4.2 Average large leak: 0s Subjective Initial [place] Sleepiness Scale score: 6 Physical Exam Height: 5 ft 1 in Impression and Plan 1. Obstructive Sleep Apnea-Hypopnea Syndrome, moderate but very severe in supine position, with fair treatment compliance and good apnea control until she stopped therapy in April. On CPAP therapy, the patient noted no benefit. Thus she would like to stop therapy and wants to know how to contact [facility] regarding return of the device. I reviewed patient's sleep study results of her overall moderate apnea of 20.1 an hour with supine AHI of 63.9 and nonsupine 16.7 and mild hypoxia from events with frances oxygen saturation of 84%. I explained rationale for treatment to reduce apnea, improve sleep quality and reduce cardiovascular and cerebrovascular events was reviewed. Since her apnea is very severe supine, I advised her to avoid sleeping on her back. She prefers to sleep on her right side, but I explained how she could sleep on her back in middle of night without knowing it. Thus she was advised how to implement positional therapy using pillow positioning or use a Slumber bump belt. She would like information sent so I will have my office send AASM nonPAP treatment pamphlet and the slumberbump pamphlet. I also discussed how stopping her CPAP is her choice but I would like her to discuss with her PCP in the event her PCP wants her to resume therapy before placing a stop order. She is unsure who her primary is right now. It was Hollis at the [facility] but thinks it is Philipp now. I will have my staff check. I also advised patient to contact me if she changes her mind and would like to resume therapy in the future. For her persistent fatigue, I advised her to follow up with her PCP for further evaluation as it was not better with CPAP either to see if another medical condition needs to be ruled out. Fatigue could also be related to her depression. She agreed with plan. * Positional therapy * AASM non pap treatments / slumberbump phamphlets to be sent * Contact PCP re stopping CPAP and persistent fatigue. * Return for follow up as needed. * * Addendum- Called patient 17:10 to clarify PCP again. * Patient PCP is Philipp Mckeon who is now working at [facility] * Clarified she is to contact me after speaks to her PCP so I can write a Stop order for CPAP and rationale * This can be done when checks on her persistent fatigue and increase need for sleep. Visit Type: Telehealth Phone (to minimize Covid 19 exposure risk) Patient Location: Home Location of Provider: Home Patient agrees and consents to this telehealth visit type: Yes Patient agrees to have their insurance billed: Yes Time Spent with Patient (minutes): 10 Provider Statement: I spent 100% of the Telehealth Phone Call with the patient with greater than 50% spent counseling the patient and coordination of care.
== END 2019-08-06 16:01 | disposition home or self-care (01) ==
LOC: SC 16:00
PROVIDERS: ATTEND Nurse Practitioner Family
DX: G47.33 Obstructive sleep apnea (adult) (pediatric) (principal)

== ENCOUNTER 2020-05-23 13:54 | Outpatient (CLI) | payer MEDICARE, BC ==
--- NOTE | 2020-05-26 12:56 | Mammography Report ---
UNILATERAL RIGHT DIGITAL SCREENING MAMMOGRAM 3D/2D: 05/23/2020 CLINICAL: Routine screening. Personal history of left breast cancer. Comparison is made to exams dated: 05/09/2019 mammogram, 04/24/2019 mammogram, and 01/26/2017 mammogra m - [facility]. There are scattered fibroglandular elements in right breast. No significant masses, calcifications, or other findings are seen in the breast. There has been no significant interval change. IMPRESSION: NEGATIVE There is no mammographic evidence of malignancy. A 1 year screening mammogram is recommended. This exam was interpreted at Station ID: [id number]. NOTE: For mammograms, a report in lay terms will be sent to the patient. Approximately 15% of breast malignancies will not be visualized mammographically. In the management of a palpable breast mass, a negative mammogram must not discourage biopsy of a clinically suspicious lesion. Electronically Signed By: Nelson Rosales M.D. [facility] [place]:05/23/2020 17:37:44 ACR BI-RADS Category 1: Negative 3341F PARENCHYMAL PATTERN: (A) - The breast(s) demonstrate(s) scattered fibroglandular densities. BI-RADS CATEGORY: (1) - 1 RECOMMENDATION: (ANNUAL) - Recommend routine annual screening mammography. [id number] 1 year screening LATERALITY: (B)
== END 2020-05-23 13:55 | disposition home or self-care (01) ==
LOC: DI 13:54
PROVIDERS: ATTEND Internal Medicine
DX: Z12.31 Encounter for screening mammogram for malignant neoplasm of breast (principal); Z85.3 Personal history of malignant neoplasm of breast

== ENCOUNTER 2020-11-05 16:33 | Outpatient (CLI) | payer MEDICARE, BC | END 2020-11-05 16:34 | disposition short-term general hospital (02) | LOC: EMS 16:33 | DX: I48.91 Unspecified atrial fibrillation (principal) | CPT/HCPCS: A0425; A0427 ==

== ENCOUNTER 2021-05-27 17:14 | Outpatient (CLI) | payer MEDICARE, BC | END 2021-05-27 17:15 | disposition critical access hospital (66) | LOC: EMS 17:14 | DX: S09.90XA Unspecified injury of head, initial encounter (principal); R41.0 Disorientation, unspecified; R26.81 Unsteadiness on feet; M54.2 Cervicalgia; W01.0XXA Fall on same level from slipping, tripping and stumbling without subsequent striking against object, initial encounter; Y92.838 Other recreation area as the place of occurrence of the external cause; Z79.01 Long term (current) use of anticoagulants | CPT/HCPCS: A0425; A0427 ==

== ENCOUNTER 2021-05-27 17:42 | Emergency (ER) | payer MEDICARE, BC ==
--- NOTE | 2021-05-27 18:05 | ED Physician Documentation ---
History of Present Illness - Stated complaint Stated Complaint: GLF - Chief complaint Chief Complaint: Trauma Hd/Nk - History obtained from History obtained from: Patient - History of Present Illness Timing: Today Pain level max: 0 Pain level now: 0 - Additonal information Additional information: 85-year-old female states that she was reaching down to pet her dog when she excellently fell forward striking her forehead. She is on Eliquis at home. She states that she has some neck pain. No numbness or tingling. No loss of consciousness. Worse with movement, better with rest. Placed in a cervical collar by EMS. 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 - Present Medications Home Medications: Ambulatory Orders Medication Instructions Recorded Confirmed Buspirone HCl 40 mg PO DAILY 05/25/19 05/27/21 Escitalopram [Lexapro] 20 mg PO DAILY 05/25/19 05/27/21 Losartan Potassium 25 mg PO DAILY 05/25/19 05/27/21 traMADol [Ultram] 50 mg PO Q4-6H PRN #14 tablet 05/29/19 05/27/21 Apixaban [Eliquis] 5 mg PO BID 11/26/20 05/27/21 Sertraline [Zoloft] 50 mg PO DAILY 11/26/20 05/27/21 dilTIAZem HCL [Diltiazem 24Hr ER 120 mg PO DAILY 11/26/20 05/27/21 (Xr)] - Allergies Allergies/Adverse Reactions: Allergies Allergy/AdvReac Type Severity Reaction Status Date / Time No Known Drug Allergies Allergy Verified 05/27/21 17:57 - Social History Smoking Status: Never smoker PD ED PE NORMAL - Vitals Vital signs reviewed: Yes - General General: Alert and oriented X 3, No acute distress - HEENT HEENT: PERRL, EOMI, Moist mucous membranes, Other (Small abrasion to the right side of the forehead.) - Neck Neck: Supple, no meningeal sign, Other (mild mid c-spine TTP) - Cardiac Cardiac: RRR, Strong equal pulses - Respiratory Respiratory: No respiratory distress, Clear bilaterally - Abdomen Abdomen: Soft, Non tender, Non distended - Back Back: No CVA TTP, No spinal TTP - Derm Derm: Warm and dry - Extremities Extremities: Normal ROM s pain, No edema, No calf tenderness / cord - Neuro Neuro: Alert and oriented X 3, compensation specialist 2-12 intact, No motor deficit, No sensory deficit, Normal speech Eye Opening: Spontaneous Motor: Obeys Commands Verbal: Oriented GCS Score: 15 - Psych Psych: Normal mood, Normal affect Results - Vitals Vitals: Vital Signs - 24 hr 05/27/21 19:05 Heart Rate 74 Respiratory 15 Rate Blood Pressure 164/74 H O2 Saturation 98 Oxygen O2 Source Room air - Rads (name of study) Head CT Radiology: Final report received, EMP read contemporaneously, See rad report Cervical spine CT Radiology: Final report received, EMP read contemporaneously, See rad report PD MEDICAL DECISION MAKING - ED course Complexity details: reviewed results, re-evaluated patient, considered differential, d/w patient ED course: 85-year-old female status post a ground-level fall in which she struck her head. She was bending over and fell forward onto the ground. No acute findings on head CT, cervical spine CT. Cervical collar removed. No neurological deficits. Ambulating without difficulty. She will utilize Tylenol as needed for pain at home. Patient counseled regarding signs and symptoms for which I believe and urgent re-evaluation would be necessary. Patient with good understanding of and agreement to plan and is comfortable going home at this time This document was made in part using voice recognition software. While efforts are made to proofread this document, sound alike and grammatical errors may occur. No lacerations. No other injuries. Departure - Departure Disposition: 01 Home, Self Care Clinical Impression: Fall from ground level Traumatic hematoma of forehead Qualifiers: Encounter type: initial encounter Qualified Code(s): S00.83XA - Contusion of other part of head, initial encounter Neck muscle strain Qualifiers: Encounter type: initial encounter Qualified Code(s): S16.1XXA - Strain of muscle, fascia and tendon at neck level, initial encounter Closed head injury Qualifiers: Encounter type: initial encounter Qualified Code(s): S09.90XA - Unspecified injury of head, initial encounter Condition: Good Instructions: ED Head Injury Closed, ED Sprain Strain Neck Follow-Up: RUPINDER REAL ARNP [Primary Care Provider] - Within 1 week Comments: The CT scans of your head and neck do not show any acute abnormalities. You can use Motrin or Tylenol as needed for pain. Please follow-up with your doctor for further care. Return if you worsen. Discharge Date/Time: 05/27/21 19:30
--- NOTE | 2021-05-27 18:52 | CT Report ---
PROCEDURE: HEAD WO INDICATIONS: fall, head injury TECHNIQUE: Noncontrast 4.5 mm thick angled axial sections acquired from the foramen magnum to the vertex. For r adiation dose reduction, the following was used: automated exposure control, adjustment of mA and/or kV according to patient size. COMPARISON: Reference is made to the MRI brain dated July 13, 2019. FINDINGS: BRAIN PARENCHYMA: Moderate matter hypoattenuation, compatible with this: Microvascular ischemia. No a cute cortical based (large territory) infarction, intracranial hemorrhage, mass or mass effect, or ab normal fluid collection. The density in the larger dural venous sinuses is grossly normal. VENTRICLES: Prominence of the ventricles and cortical sulci, likely secondary to atrophy. BONES/SINUSES: The skull base and calvarium demonstrate no acute abnormality. The paranasal sinuses a nd mastoid air cells are well aerated. Trace right frontal subgaleal hematoma. IMPRESSION: 1.No acute intracranial abnormality. Reviewed by: Pedro Pozo MD on 05/27/2021 6:51 PM PST Approved by: Pedro Pozo MD on 05/27/2021 6:51 PM PST Station ID: [id number]
--- NOTE | 2021-05-27 19:01 | CT Report ---
PROCEDURE: CERVICAL SPINE WO INDICATIONS: fall, neck pain TECHNIQUE: Noncontrast 3 mm thick sections acquired from the skull base to the T4 level. Sagittal and coronal r eformats were then constructed. For radiation dose reduction, the following was used: automated exp osure control, adjustment of mA and/or kV according to patient size. COMPARISON: None. FINDINGS: Image quality: Excellent. Bones: No fractures or dislocations. Visualized superior ribs are intact. Disc space narrowing and anterior aspect present throughout the exam. Grade 1 degenerative anterior spinal listhesis noted at C2-3. Craniovertebral relationships are normal. Moderate central stenosis noted at C3-4 and C4-5 with severe central stenosis at C5-6 and C6-7 with significant cord indentation and flattening. Soft tissues: Prevertebral soft tissues are normal in thickness. No paravertebral hematomas. No ap ical pneumothoraces. IMPRESSION: No evidence of fracture or traumatic malalignment Advanced degenerative disc disease and arthropathy results in grade 1 anterior spinal listhesis at C2 -3 and severe central stenosis at C5-6 and C6-7 Reviewed by: Nahun Rutherford MD on 05/27/2021 6:00 PM [place] Approved by: Nahun Rutherford MD on 05/27/2021 6:00 PM AK Station ID: [id number]
[2021-05-27 19:07] VITALS: BP 164/74
[2021-05-27] MEDS ORDERED: ACETAMINOPHEN 325 MG TABLET PO STA (19:12)
== END 2021-05-27 19:30 | disposition home or self-care (01) ==
LOC: EDUNIT# → ED 17:42
DX: S00.83XA Contusion of other part of head, initial encounter (principal); S16.1XXA Strain of muscle, fascia and tendon at neck level, initial encounter; S09.90XA Unspecified injury of head, initial encounter; W18.30XA Fall on same level, unspecified, initial encounter; Y92.009 Unspecified place in unspecified non-institutional (private) residence as the place of occurrence of the external cause; Z79.01 Long term (current) use of anticoagulants; M54.2 Cervicalgia
CPT/HCPCS: 36415; 70450; 72125; 99282; 99284; A9270

== ENCOUNTER 2021-06-26 16:56 | Emergency (ER) | payer MEDICARE, BC ==
[2021-06-26 17:16] LABS: BASOPHILS # (AUTO) 0.1 10^3/uL (0.0-0.1); BASOPHILS % (AUTO) 0.6 %; EOSINOPHILS # (AUTO) 0.1 10^3/uL (0.0-0.7); EOSINOPHILS % (AUTO) 1.1 %; HGB - HEMOGLOBIN 12.6 g/dL (12.0-16.0); LYMPHOCYTES # (AUTO) 1.8 10^3/uL (1.5-3.5); LYMPHOCYTES % (AUTO) 14.8 %; MEAN CORPUSCULAR HEMOGLOBIN 30.3 pg (27.0-31.0); MEAN CORPUSCULAR HGB CONC 33.2 g/dL (32.0-36.0); MEAN CORPUSCULAR VOLUME 91.3 fL (81.0-99.0); MEAN PLATELET VOLUME 9.2 fL (7.9-10.8); NEUTROPHILS # (AUTO) 9.2 10^3/uL (1.5-6.6); NEUTROPHILS % (AUTO) 74.9 %; PLT - PLATELET COUNT 248 10^3/uL (130-450); RED BLOOD COUNT 4.16 10^6/uL (4.20-5.40); RED CELL DISTRIBUTION WIDTH 14.3 % (12.0-15.0); WHITE BLOOD COUNT 12.3 x10^3/uL (4.8-10.8)
[2021-06-26 17:28] LABS: ALBUMIN 4.6 g/dL (3.2-5.5); ALBUMIN/GLOBULIN RATIO 1.6 (1.0-2.2); BILIRUBIN,TOTAL 1.3 mg/dL (0.2-1.0); CALCIUM 10.1 mg/dL (8.5-10.3); CREATININE 0.9 mg/dL (0.4-1.0); POTASSIUM 3.4 mmol/L (3.5-5.0); TOTAL PROTEIN 7.4 g/dL (6.7-8.2)
--- NOTE | 2021-06-26 17:29 | ED Physician Documentation ---
History of Present Illness - Stated complaint Stated Complaint: FALL +BLOOD THINNERS - Chief complaint Chief Complaint: Neuro - Additonal information Additional information: 86-year-old female is referred to the emergency department for evaluation after a ground-level fall at home yesterday. She has a history of atrial fibrillation and is anticoagulated on Eliquis. She reports that she was attempting to sit down in onto her bed when she fell because she could not quite reach the mattress. She did strike her head. This occurred last night she had difficulty getting up off the ground therefore she remained on the ground overnight. Her son today took her to a local walk-in clinic and she was referred to come to the ER. Patient reports 2 falls over the last month while attempting to get into bed. However she has not had a fall while standing. On presentation patient appears rather well though she prefers to keep her left eye closed as she has double vision when both eyes are open (BINOCULAR DIPLOPIA) Her son indicates to me that she had a ground-level fall about a month ago when her dog tripped her at the dog park. She had also begun to express some difficulty with vision which may have been diplopia. Her corn grower requested that her primary care doctor make a referral to neurology. The referral has been made and the appointment is set for Review of Systems Constitutional: denies: Fever, Chills Eyes: reports: Other (binocular diplopia) Nose: reports: Reviewed and negative Throat: reports: Reviewed and negative Cardiac: reports: Reviewed and negative Respiratory: reports: Reviewed and negative GI: reports: Reviewed and negative : reports: Reviewed and negative Skin: reports: Abrasion (s). denies: Rash, Lesions Musculoskeletal: reports: Neck pain Neurologic: reports: Focal weakness, Headache. 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 - Present Medications Home Medications: Ambulatory Orders Medication Instructions Recorded Confirmed Buspirone HCl 40 mg PO DAILY 05/25/19 05/27/21 Escitalopram [Lexapro] 20 mg PO DAILY 05/25/19 05/27/21 Losartan Potassium 25 mg PO DAILY 05/25/19 05/27/21 traMADol [Ultram] 50 mg PO Q4-6H PRN #14 tablet 05/29/19 05/27/21 Apixaban [Eliquis] 5 mg PO BID 11/26/20 05/27/21 Sertraline [Zoloft] 50 mg PO DAILY 11/26/20 05/27/21 dilTIAZem HCL [Diltiazem 24Hr ER 120 mg PO DAILY 11/26/20 05/27/21 (Xr)] - Allergies Allergies/Adverse Reactions: Allergies Allergy/AdvReac Type Severity Reaction Status Date / Time No Known Drug Allergies Allergy Verified 06/26/21 17:11 - Social History Smoking Status: Never smoker PD ED PE EXPANDED - General General: Alert, No acute distress, Well developed/nourished - HEENT HEENT: Atraumatic, PERRL, EOMI, Moist mucous membranes, Pharyngeal erythema, Other (Extraocular movements intact without any palsy. Patient endorses diplopia with both eyes open. This resolves when she closes her left eye.) - Cardiac Cardiac: Irregularly irregular, Murmur Present, Radial strong equal, Pedal strong equal, Cap refill < 2 sec - Respiratory Respiratory: Clear to ausultation bebe. No: Distress, Labored - Abdomen Abdomen: Normal Bowel sounds. No: Tender to palpation - Derm Derm: Normal color, Abrasion (s) (Left elbow) - Neuro Neuro: Alert and Oriented X 3, CNII-XII intact, PERRL (Extraocular movements intact.), Normal speech. No: Confused, Disoriented, Nystagmus, Normal finger nose (Discoordination with both eyes open. Normal when left eye closed) - GCS Eye Opening: Spontaneous Motor: Obeys Commands Verbal: Oriented Total: 15 Results - Vitals Vitals: Vital Signs - 24 hr 06/26/21 06/26/21 06/26/21 17:00 17:03 18:47 Temperature 36.2 C L Heart Rate 75 110 H 75 Respiratory 14 18 15 Rate Blood Pressure 135/85 H 161/67 H O2 Saturation 96 96 97 06/26/21 06/26/21 19:19 21:33 Temperature Heart Rate 83 79 Respiratory 14 16 Rate Blood Pressure 160/83 H 129/55 L O2 Saturation 94 95 Oxygen O2 Source Room air - EKG (time done) 1721 Rate: Rate (enter#) (83) Rhythm: NSR Intervals: LBBB Ischemia: Q waves Compare to prior EKG: Changed from prior EKG Computer interpretation: Agree with computer - Labs Labs: Laboratory Tests 06/26/21 06/26/21 17:13 17:13 WBC 12.3 H RBC 4.16 L Hgb 12.6 Hct 38.0 MCV 91.3 MCH 30.3 MCHC 33.2 RDW 14.3 Plt Count 248 MPV 9.2 Neut # (Auto) 9.2 H Lymph # (Auto) 1.8 Peach # (Auto) 1.0 Eos # (Auto) 0.1 Baso # (Auto) 0.1 Absolute Nucleated RBC 0.00 Nucleated RBC % 0.0 Sodium 139 Potassium 3.4 L Chloride 104 Carbon Dioxide 19 L Anion Gap 16.0 H BUN 31 H Creatinine 0.9 Estimated GFR (MDRD) 59 L Glucose 91 Calcium 10.1 Total Bilirubin 1.3 H AST 36 ALT 22 Alkaline Phosphatase 55 Total Creatine Kinase 932 H Total Protein 7.4 Albumin 4.6 Globulin 2.8 Albumin/Globulin Ratio 1.6 Lipase 30 - Rads (name of study) cervical spine Radiology: Final report received (No acute fracture. Advanced cervical spine degenerative changes) CTA Head Radiology: Final report received (No significant intracranial arterial abnormalities are seen. No intracranial hemorrhage is seen. Stable brain parenchymal volume loss and chronic small vessel ischemic change) CT neck Radiology: Final report received (Approximately 50% stenosis involving the origin of the right ICA where there is focal calcification. Within the right proximal ICA there is an additional 50% narrowing where there is tortuosity and a kink.) PD MEDICAL DECISION MAKING - ED course Complexity details: reviewed results, re-evaluated patient, d/w patient, d/w automotive service consultant (Jamil) ED course: 86-year-old female was brought to the emergency department for evaluation after a ground-level fall last night in which she missed her bed and ended up on the floor overnight. She has a history of atrial fib and is anticoagulated on Eliquis. She has had at least 3-4 falls over the last month. Today CT scan showed no acute intracranial hemorrhages. However the patient presents with binocular diplopia. She prefers to keep her left eye shut due to this. She does have a referral pending to neurology. CT angio of the head Did not show any acute stenosis aneurysm. The CT of the neck does show 50% right ICA stenosis and calcification. This is known to the patient and her son. I did discuss the binocular diplopia with Dr. Gandara on-call with [place] [facility]. She would recommend an outpatient MRI but 1 does not need to be completed today. It is likely that the binocular diplopia is related to Ocular misalignment though no disconjugate gaze was noted on my exam. Patient was noted today to have an elevated CK of just over 900. Renal function is preserved. While here in the emergency department she has received 2 L of crystalloid. We did do a road test with the patient and she is quite unstable with her walker. Her son is fearful that she will have more falls at home overnight as she does live alone. He is requesting to speak with social work in the morning to see if there can be arrangements made for respite care or [facility] facility. Patient will be signed out to my colleague Dr. Cabral for any overnight events. Social work will see the patient in the a.m. and I will return tomorrow to follow-up on care and further disposition. I have ordered repeat chemistry and CK for the morning. Departure - Departure Clinical Impression: Fall from ground level, Binocular vision disorder with diplopia, Anticoagulated, Elevated CK, Carotid artery stenosis, unilateral
[2021-06-26] MEDS ORDERED: SODIUM CHLORIDE 0.9% 1,000 ML IV STA ×2 (17:44→20:22)
[2021-06-26] MEDS ORDERED: IOVERSOL 320 100 ML VIAL IVP ONE (17:54)
--- NOTE | 2021-06-26 18:03 | CT Report ---
PROCEDURE: CERVICAL SPINE WO INDICATIONS: GLF TECHNIQUE: Noncontrast 3 mm thick sections acquired from the skull base to the T4 level. Sagittal and coronal r eformats were then constructed. For radiation dose reduction, the following was used: automated exp osure control, adjustment of mA and/or kV according to patient size. COMPARISON: None. FINDINGS: Image quality: Motion artifact is noted. Bones: No fractures or dislocations. Visualized superior ribs are intact. Advanced cervical spine degenerative changes are seen, with moderate to severe disc space narrowing a t C3-C4, C4-C5, C5-C6, C6-C7, and C7-T1. Endplate irregularity and sclerosis are seen, which are wors t at C3-C4. Soft tissues: Prevertebral soft tissues are normal in thickness. No paravertebral hematomas. No ap ical pneumothoraces. Calcification is seen of the aortic arch. IMPRESSION: No acute fracture can be seen. Advanced cervical spine degenerative changes are seen. Reviewed by: Maxx Cotton MD on 06/26/2021 5:02 PM [facility] Approved by: Maxx Cotton MD on 06/26/2021 5:02 PM [facility] Station ID: [id number]
--- NOTE | 2021-06-26 18:30 | CT Report ---
PROCEDURE: ANGIO NECK W INDICATIONS: GLF; double vision; anticoagulated CONTRAST: IV CONTRAST: Optiray 320 ml: 80 PO CONTRAST: *NO PO CONTRAST TECHNIQUE: After the administration of intravenous contrast, 1.5 mm axial sections acquired from the aortic arch to the [place] of [place]. Coronal 3-D maximum intensity projection (MIP) and/or volume rendering ref ormats were then performed. For radiation dose reduction, the following was used: automated exposur e control, adjustment of mA and/or kV according to patient size. COMPARISON: Correlation is made with the accompanying head CT angiogram and cervical spine CT examin ations dated 06/26/2021. Correlation is made with prior cervical spine CT, 05/27/2021. FINDINGS: Image quality: Excellent. Carotid system: The great vessels demonstrate a conventional anatomy as they arise from the aortic a rch. The origins of the common carotid arteries appear patent. The common carotid arteries demonstr ate normal calibers and courses. Focal calcification can be seen involving the right carotid bifurcation region, with approximately pe rcent narrowing. Within the proximal right internal carotid artery, there is tortuosity seen with a k ink at approximately 50% narrowing, as on series 4 image 88, approximately 1.5 cm beyond the right ca rotid bifurcation region. No significant left-sided internal carotid artery narrowing can be seen. Posterior circulation: The origins of the vertebral arteries appear patent. The more superior porti ons of the vertebral arteries demonstrate normal course and caliber. They join to form a normal appe aring basilar artery. Soft tissues: Visualized neck soft tissues demonstrate no suspicious abnormalities. The thyroid is normal in size and there are no incidental findings. Mild emphysematous changes can be seen at the prasanna ng apices. Bones: No suspicious bony lesions. Visualized cervical spine appears normally aligned. Advanced c ervical spine degenerative changes are seen. 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 Within the right proximal internal carotid artery, there is an additional approximately 50% narrowing where there is tortuosity and a kink, within the proximal internal carotid artery. The estimate of stenosis included in the report of the imaging study was calculated using the NASCET method Reviewed by: Maxx Cotton MD on 06/26/2021 5:29 PM AKDT Approved by: Maxx Cotton MD on 06/26/2021 5:29 PM [facility] Station ID: [id number]
--- NOTE | 2021-06-26 18:33 | CT Report ---
PROCEDURE: ANGIO HEAD W/WO INDICATIONS: GKF; double vsion, anticoagulated CONTRAST: IV CONTRAST: Optiray 320 ml: 80 PO CONTRAST: *NO PO CONTRAST TECHNIQUE: Precontrast 4.5 mm thick angled axial sections acquired from the foramen magnum to the vertex. Afte r the administration of intravenous contrast, 1 mm thick sections acquired through the [place] of [place] is. Postcontrast 4.5 mm thick sections then re-acquired from the foramen magnum to the vertex. 3-di mensional zopleko-xrzilukrb-lnjuctwifs (MIP) and/or volume rendering reformats were acquired of the c entral intracranial vasculature. For radiation dose reduction, the following was used: automated ex posure control, adjustment of mA and/or kV according to patient size. COMPARISON: Correlation is made with the accompanying neck CT angiogram and cervical spine CT, 2019. Correlation is made with the recent prior noncontrast head CT, 05/27/2021. FINDINGS: Image quality: Excellent. Anterior circulation: Intracranial internal carotid arteries are normal in size and flow. The flow within the paired anterior cerebral arteries is normal and symmetric. The flow within the middle cer ebral arteries is normal and symmetric. The anterior communicating artery is seen. No aneurysms are seen. Posterior circulation: Visualized portions of the vertebral arteries demonstrate normal caliber, and join to form a normal appearing basilar artery. Flow within the posterior cerebral arteries is norm al and symmetric. No aneurysms are seen. CSF spaces: Ventricles are prominent, yet stable in size and shape. Basal cisterns are patent. No extra-axial fluid collections. Brain: Generalized brain parenchymal volume loss and chronic small vessel ischemic change can be seen . No midline shift. No intracranial bleeds or masses. Chen-white matter interface appears intact. Skull and face: Calvarium and facial bones appear intact, without suspicious lesions. Sinuses: Visualized sinuses and mastoids are clear. IMPRESSION: No significant intracranial arterial abnormalities are seen. No intracranial hemorrhage is seen. No significant intracranial abnormality is seen. Stable brain parenchymal volume loss and chronic small vessel ischemic change, with stable prominence of the ventricles. Reviewed by: Maxx Cotton MD on 06/26/2021 5:31 PM [facility] Approved by: Maxx Cotton MD on 06/26/2021 5:31 PM [facility] Station ID: [id number]
[2021-06-27 08:43] LABS: CALCIUM 9.1 mg/dL (8.5-10.3); CREATININE 0.7 mg/dL (0.4-1.0); POTASSIUM 3.1 mmol/L (3.5-5.0)
[2021-06-27] MEDS ORDERED: SODIUM CHLORIDE 0.9% 1,000 ML IV STA (09:39)
--- NOTE | 2021-06-27 11:32 | ED Physician Documentation ---
ED Addendum - Addendum Addendum: 06/27/21 11:31 Patient remained in the emergency department overnight pending social work evaluation to help family with longer-term care plans. She really remained on IV fluids overnight. Her CK trended downward to 600 overnight. Her vital signs have remained stable and she is afebrile. After being seen by social work her son Ronal feels comfortable taking her home. [place] He reports to me that he has 6 hours of care for her during the day and will plan to remain with her overnight until longer-term care options are found.
[2021-06-27 11:54] VITALS: BP 166/73
--- NOTE | 2021-07-08 00:41 | ED Physician Documentation ---
ED Addendum - Addendum Addendum: 07/08/21 00:40 Received sign out from ADRIANA Almanzar at end of her shift 06/26, patient is pending reevaluation in AM by SW for consideration of placement options. There were no events overnight during my shift, and care of patient turned over to ED MD oncoming in the morning 06/27.
== END 2021-06-27 11:55 | disposition home or self-care (01) ==
LOC: ED 16:56
DX: S09.90XA Unspecified injury of head, initial encounter (principal); W17.89XA Other fall from one level to another, initial encounter; I65.29 Occlusion and stenosis of unspecified carotid artery; H53.2 Diplopia; I48.91 Unspecified atrial fibrillation; Z79.01 Long term (current) use of anticoagulants; Z91.81 History of falling
CPT/HCPCS: 36415; 70496; 70498; 72125; 80048; 80053; 82550; 83690; 85025; 93005; 96360; 96361; 99284; Q9967

== ENCOUNTER 2021-07-22 15:21 | Outpatient (CLI) | payer MEDICARE, BC ==
[2021-07-22 15:26] LABS: CHOL/HDL RATIO 6.5 (<4.4); CHOLESTEROL 255 mg/dL; HDL CHOLESTEROL 39 mg/dL; LDL CHOLESTEROL,CALCULATED 174 mg/dL; LDL/HDL RATIO 4.5 (<4.4); TRIGLYCERIDES 209 mg/dL; VLDL CHOLESTEROL 42 mg/dL
[2021-07-22 15:39] LABS: THYROID STIMULATING HORMONE 3.76 uIU/mL (0.34-5.60)
== END 2021-07-22 15:22 | disposition home or self-care (01) ==
LOC: LAB 15:21
PROVIDERS: ATTEND Psychiatry & Neurology Neurology
DX: Z00.00 Encounter for general adult medical examination without abnormal findings (principal); H53.2 Diplopia; H02.402 Unspecified ptosis of left eyelid
CPT/HCPCS: 80061; 83036; 83519; 83721; 84443

== ENCOUNTER 2021-09-30 14:09 | Outpatient (CLI) | payer MEDICARE, BC ==
--- NOTE | 2021-10-01 07:49 | Mammography Report ---
UNILATERAL RIGHT DIGITAL SCREENING MAMMOGRAM 3D/2D: 09/30/2021 CLINICAL: Routine screening. Personal history of left breast cancer. Comparison is made to exams dated: 05/23/2020 mammogram, 05/09/2019 mammogram, and 01/26/2017 mammogra m - [facility]. There are scattered fibroglandular elements in right breast. No significant masses, calcifications, or other findings are seen in the breast. There has been no significant interval change. IMPRESSION: NEGATIVE There is no mammographic evidence of malignancy. A 1 year screening mammogram is recommended. This exam was interpreted at Station ID: [id number]. NOTE: For mammograms, a report in lay terms will be sent to the patient. Approximately 15% of breast malignancies will not be visualized mammographically. In the management of a palpable breast mass, a negative mammogram must not discourage biopsy of a clinically suspicious lesion. Electronically Signed By: Gianni Ayala M.D. ar/penrad:09/30/2021 15:28:41 ACR BI-RADS Category 1: Negative 3341F PARENCHYMAL PATTERN: (A) - The breast(s) demonstrate(s) scattered fibroglandular densities. BI-RADS CATEGORY: (1) - 1 RECOMMENDATION: (ANNUAL) - Recommend routine annual screening mammography. [id number] 1 year screening LATERALITY: (B)
== END 2021-09-30 14:10 | disposition home or self-care (01) ==
LOC: DI.S 14:09
PROVIDERS: ATTEND Internal Medicine
DX: Z12.31 Encounter for screening mammogram for malignant neoplasm of breast (principal); Z85.3 Personal history of malignant neoplasm of breast

== ENCOUNTER 2022-05-25 17:06 | Outpatient (CLI) | payer MEDICARE, BC | END 2022-05-25 23:59 | disposition critical access hospital (66) | LOC: EMS 17:06 | DX: M54.9 Dorsalgia, unspecified (principal); W06.XXXA Fall from bed, initial encounter; Y92.092 Bedroom in other non-institutional residence as the place of occurrence of the external cause | CPT/HCPCS: A0425; A0429 ==

== ENCOUNTER 2022-05-25 17:30 | Emergency (ER) | payer MEDICARE, BC ==
--- NOTE | 2022-05-25 18:20 | CT Report ---
PROCEDURE: HEAD WO INDICATIONS: fall/on eliquis TECHNIQUE: Noncontrast 4.5 mm thick angled axial sections acquired from the foramen magnum to the vertex. For r adiation dose reduction, the following was used: automated exposure control, adjustment of mA and/or kV according to patient size. COMPARISON: Brain MRI dated 08/13/2021 FINDINGS: Image quality: Excellent. CSF spaces: Basal cisterns are patent. No extra-axial fluid collections. Ventricles are normal in size and shape. Brain: No midline shift. No intracranial masses or hemorrhage. Chen-white matter interface is norm al. Skull and face: Calvarium and visualized facial bones are intact, without suspicious lesions. Sinuses: Visualized sinuses and mastoids are clear. IMPRESSION: 1. No acute intracranial abnormality. Reviewed by: Tracy Kincaid MD on 05/25/2022 6:19 PM PST Approved by: Tracy Kincaid MD on 05/25/2022 6:19 PM [facility] Station ID: [id number]
--- NOTE | 2022-05-25 18:23 | CT Report ---
PROCEDURE: LUMBAR SPINE WO INDICATIONS: fall/pain TECHNIQUE: Noncontrast 3 mm thick sections acquired from the T12 level to the sacrum. Sagittal and coronal refo rmats were constructed. For radiation dose reduction, the following was used: automated exposure co ntrol, adjustment of mA and/or kV according to patient size. COMPARISON: None. FINDINGS: Image quality: Excellent. Bones: There is normal bony alignment. Mild subacute appearing L2 compression fracture. Multilevel d egenerative disc and facet disease. No suspicious lytic or blastic bony lesions. Central spinal kelsy evy is of normal overall caliber. No pars defects. Soft tissues: No retroperitoneal masses or hematomas. Visualized aorta is normal in caliber. IMPRESSION: Mild subacute L2 compression fracture. Reviewed by: Tracy Kincaid MD on 05/25/2022 6:21 PM PST Approved by: Tracy Kincaid MD on 05/25/2022 6:21 PM PST Station ID: [id number]
--- NOTE | 2022-05-25 18:31 | ED Physician Documentation ---
History of Present Illness - Stated complaint Stated Complaint: GLF/BACK PX - Chief complaint Chief Complaint: Trauma Ch/Bk - History obtained from History obtained from: Patient, EMS - Additonal information Additional information: The patient is brought to the emergency department by EMS for chief complaint of low back pain after a fall last night. The patient lives in [place] and states that she was getting up when she stumbled back against the wall and then slid down. She states she did not hit her head as far she knows but cannot be completely sure. She states that she is having some right lower back pain with certain movements and remembers that she has some sort of chronic fracture but cannot say anything more about it at this point in time. She denies any numbness or tingling in her lower extremities. No weakness. No difficulty controlling bowel or bladder that is new. No other injuries or complaints. She is on Eliquis. PD PAST MEDICAL HISTORY - Past Medical History Past Medical History: Yes Cardiovascular: Murmur, Arrhythmia Respiratory: Sleep apnea, CPAP use Neuro: Other Endocrine/Autoimmune: None GI: GERD CISCO CONSULTANT: None : None HEENT: Chronic vision loss, Chronic hearing loss Psych: Depression, Anxiety Musculoskeletal: Osteoarthritis Derm: None - Past Surgical History Past Surgical History: Yes /CISCO CONSULTANT: Mastectomy - Present Medications Home Medications: Ambulatory Orders Medication Instructions Recorded Confirmed Losartan Potassium 25 mg PO DAILY PM 05/25/19 05/25/22 Apixaban [Eliquis] 2.5 mg PO BID 11/26/20 05/25/22 dilTIAZem HCL [Diltiazem 24Hr ER 120 mg PO DAILY 11/26/20 05/25/22 (Xr)] Acetaminophen [Tylenol] 975 mg PO Q6H PRN 05/25/22 05/25/22 Aspirin Chewable [St Shaggy 81 mg PO DAILY 05/25/22 05/25/22 Aspirin] Bisacodyl Supp [Dulcolax Supp] 10 mg WI DAILY PRN 05/25/22 05/25/22 Docusate Sodium [Dok] 100 mg PO BID 05/25/22 05/25/22 Donepezil [Aricept] 5 mg PO DAILY 05/25/22 05/25/22 HYDROcod/ACETAM 5/325 [Beaver 5/325] 1 - 2 tablet PO Q6H PRN #7 tablet 05/25/22 Lidocaine Patch 5% [Lidoderm Patch] 1 each TOP DAILY PRN 05/25/22 05/25/22 Mineral Oil [Mineral Oil Enema] 1 ea RC DAILY PRN 05/25/22 05/25/22 Naloxone HCl Nasal [Narcan Nasal] 4 mg NS PRN PRN 05/25/22 05/25/22 Omeprazole Magnesium 20 mg PO DAILY 05/25/22 05/25/22 Senna [Senokot] 8.6 mg PO TID 05/25/22 05/25/22 Sertraline HCl 200 mg PO DAILY 05/25/22 05/25/22 methocarbamoL [Methocarbamol] 500 mg PO BID PRN 05/25/22 05/25/22 oxyCODONE [Roxicodone] 5 mg PO Q4HR PRN 05/25/22 05/25/22 - Allergies Allergies/Adverse Reactions: Allergies Allergy/AdvReac Type Severity Reaction Status Date / Time No Known Drug Allergies Allergy Verified 05/25/22 17:43 - Social History Does the pt smoke?: No Smoking Status: Never smoker Does the pt drink ETOH?: No Does the pt have substance abuse?: No - Immunizations Immunizations are current?: No Immunizations: TDAP >10years/unknown - POLST Patient has POLST: No PD ED PE NORMAL - Vitals Vital signs reviewed: Yes - General General: Alert and oriented X 3, No acute distress - HEENT HEENT: Atraumatic, PERRL, EOMI, Moist mucous membranes - Neck Neck: Supple, no meningeal sign - Cardiac Cardiac: RRR, No murmur, Strong equal pulses - Respiratory Respiratory: No respiratory distress, Clear bilaterally - Abdomen Abdomen: Soft, Non tender, Non distended - Back Back: No spinal TTP - Derm Derm: Normal color, Warm and dry, No rash - Extremities Extremities: No deformity, No tenderness to palpate - Neuro Neuro: senior care manager 2-12 intact, No motor deficit, No sensory deficit, Normal speech, Other (Patient is alert and answers questions appropriately.) - Psych Psych: Normal mood, Normal affect Results - Vitals Vitals: Vital Signs - 24 hr 05/25/22 05/25/22 05/25/22 17:43 18:56 19:21 Temperature 37.3 C Heart Rate 66 72 62 Respiratory 24 15 17 Rate Blood Pressure 180/69 H O2 Saturation 100 99 100 05/25/22 05/25/22 19:29 20:05 Temperature Heart Rate 69 Respiratory 15 15 Rate Blood Pressure O2 Saturation 98 Oxygen O2 Source Room air - Rads (name of study) CT head Radiology: Final report received, See rad report (Negative) CT lumbar spine Radiology: Final report received, See rad report (Subacute L2 compression fracture) PD Medical Decision Making - ED course Complexity details: reviewed results, re-evaluated patient, considered differential, d/w patient ED course: The patient was sent for CT scan of the head, due to her history of being on Eliquis and lack of absolute clarity about head injury during the fall. This was ordered and reviewed by me and read by the radiologist and found to show no acute findings. Noncontrast lumbar spine CT was also ordered and evaluated by me as well as read by the radiologist and showed a subacute L2 compression fracture. I discussed with the patient that this is most likely the source of her back pain. The patient requested analgesia in the emergency department was given a dose of Vicodin 1 tablet. I have sent a prescription for the same to the [facility] in [place] at her request. The patient was stable for discharge home. Her son will be picking her up. We discussed symptomatic management at home as well as the usual indications for return. Departure - Departure Disposition: 01 Home, Self Care Clinical Impression: Ground-level fall Compression fracture of lumbar vertebra Qualifiers: Encounter type: initial encounter Lumbar vertebra fracture level: L2 Qualified Code(s): S32.020A - Wedge compression fracture of second lumbar vertebra, initial encounter for closed fracture Condition: Stable Instructions: ED Fx Comp Vertebral Prescriptions: HYDROcod/ACETAM 5/325 [Beaver 5/325] 1 - 2 tablet PO Q6H PRN #7 tablet PRN Reason: Pain Comments: Your CT scan of the head looks good. Your lumbar spine CT shows a compression fracture of your second lumbar vertebra that is likely pre-existing, based on the appearance. This is probably the issue with your back that you had been alerted to before. A compression fracture is stable and is very common among older people. It is a crushing of part of the main mass of the vertebra, usually from the force of falling or sitting down hard. Certain twisting injuries can sometimes cause it as well. These fractures are often chronic, though they can sometimes heal to a certain degree. Sometimes with another trauma, it can cause the area to flareup a bit or put some strain on the area and this can be a cause of pain. Usually, given time, the pain goes down.
[2022-05-25] MEDS ORDERED: HYDROcod/ACETAM 5/325 MG TABLET PO STA (18:38)
[2022-05-25 21:26] VITALS: BP 167/72
== END 2022-05-25 21:26 | disposition home or self-care (01) ==
LOC: EDUNIT# → ED 17:30
DX: S32.020A Wedge compression fracture of second lumbar vertebra, initial encounter for closed fracture (principal); W18.39XA Other fall on same level, initial encounter; Y93.89 Activity, other specified; Y92.199 Unspecified place in other specified residential institution as the place of occurrence of the external cause; F03.90 Unspecified dementia, unspecified severity, without behavioral disturbance, psychotic disturbance, mood disturbance, and anxiety; Z79.01 Long term (current) use of anticoagulants
CPT/HCPCS: 70450; 72131; 99283; 99284; A9270

== ENCOUNTER 2022-09-15 15:04 | Outpatient (CLI) | payer MEDICARE, BC ==
--- NOTE | 2022-09-16 09:20 | Mammography Report ---
UNILATERAL RIGHT DIGITAL SCREENING MAMMOGRAM 3D/2D: 09/15/2022 CLINICAL: Routine screening. Personal history of left breast cancer. Family history of breast cancer. Comparison is made to exams dated: 09/30/2021 mammogram, 05/23/2020 mammogram, 05/09/2019 mammogram, an d 04/24/2019 mammogram - [facility]. There are scattered areas of fibroglandular density in the right breast (category b / 25%-50% glandul ar tissue). No significant masses, calcifications, or other findings are seen in the breast. There has been no significant interval change. IMPRESSION: NEGATIVE There is no mammographic evidence of malignancy. A 1 year screening mammogram is recommended. This exam was interpreted at Station ID: Unknown. NOTE: For mammograms, a report in lay terms will be sent to the patient. Approximately 15% of breast malignancies will not be visualized mammographically. In the management of a palpable breast mass, a negative mammogram must not discourage biopsy of a clinically suspicious lesion. Electronically Signed By: Vishnu Espinosa M.D. at/:09/16/2022 09:17:29 Entry: - 09/16/2022 09:17:29 letter sent: No_Letter ACR BI-RADS Category 1: Negative 3341F PARENCHYMAL PATTERN: (A) - The breast(s) demonstrate(s) scattered fibroglandular densities. BI-RADS CATEGORY: (1) - 1 Mammogram [id number] 1 year screening LATERALITY: (B)
== END 2022-09-15 15:05 | disposition home or self-care (01) ==
LOC: DI.S 15:04
DX: Z12.31 Encounter for screening mammogram for malignant neoplasm of breast (principal); Z85.3 Personal history of malignant neoplasm of breast; Z80.3 Family history of malignant neoplasm of breast

== ENCOUNTER 2022-09-20 09:33 | Outpatient (CLI) | payer MEDICARE, BC ==
--- NOTE | 2022-09-21 12:43 | Ultrasound Report ---
ULTRASOUND OF LEFT AXILLA: 09/20/2022 CLINICAL: Diffuse left axilla pain. Comparison is made to exams dated: 05/09/2019 mammogram, 05/09/2019 ultrasound biopsy, 04/24/2019 mammo gram, 04/24/2019 ultrasound, and 01/26/2017 mammogram - [facility]. Ultrasound of the left axilla was performed. Chen scale images of the real-time examination were re viewed. IMPRESSION: NEGATIVE There is no sonographic evidence of malignancy. There is no abnormality seen in the left axilla to correspond with the area of clinical concern, perez roney, clinical correlation and clinical followup are recommended. Consider repeat/further imaging if there are any new or worsening symptoms. Return to annual mammogram screening schedule is recommended. This exam was interpreted at Station ID: [id number]. Electronically Signed By: Adam Salguero M.D. lc/:09/20/2022 10:24:48 Ultrasound BI-RADS: 1 Negative BI-RADS CATEGORY: (1) - 1 Mammogram [id number] return to screening LATERALITY: (B)
== END 2022-09-20 09:34 | disposition home or self-care (01) ==
LOC: DI 09:33
PROVIDERS: ATTEND Internal Medicine
DX: C50.912 Malignant neoplasm of unspecified site of left female breast (principal); N64.4 Mastodynia

== ENCOUNTER 2022-10-04 05:21 | Outpatient (CLI) | payer MEDICARE, BC | END 2022-10-04 23:59 | disposition critical access hospital (66) | LOC: EMS 05:21 | DX: K62.5 Hemorrhage of anus and rectum (principal); Z79.01 Long term (current) use of anticoagulants | CPT/HCPCS: A0425; A0429 ==

== ENCOUNTER 2022-10-04 05:47 | Emergency (ER) | payer MEDICARE, BC ==
--- NOTE | 2022-10-04 06:15 | ED Physician Documentation ---
History of Present Illness - Stated complaint Stated Complaint: RECTAL BLEED - Chief complaint Chief Complaint: General - History obtained from History obtained from: Patient - Additonal information Additional information: Patient is an 87-year-old female presenting for evaluation of blood that she noted on her depends this morning that she estimates to be a tablespoon or less.Patient denies noticing any abnormal colored stools or blood in her stools recently. She does report a history of constipation. Denies abdominal pain, dizziness or lightheadedness.Her last bowel movement was this morning and patient reports that it was normal color and there is no blood in the toilet bowl. She did not notice blood until she wiped and then she noticed it on her depends. She does have a history of A-fib and is on Eliquis. She does live at [facility] and does get stool softeners for her constipation. EMS did not note any evidence of blood at the scene. Review of Systems Constitutional: denies: Fever Cardiac: denies: Chest pain / pressure Respiratory: denies: Dyspnea GI: denies: Abdominal Pain Neurologic: denies: Generalized weakness PD PAST MEDICAL HISTORY - Past Medical History Cardiovascular: Murmur, Arrhythmia Respiratory: Sleep apnea, CPAP use Neuro: Other Endocrine/Autoimmune: None GI: GERD APPLICATION PENETRATION TESTER: None : None HEENT: Chronic vision loss, Chronic hearing loss Psych: Depression, Anxiety Musculoskeletal: Osteoarthritis Derm: None - Past Surgical History Past Surgical History: Yes /APPLICATION PENETRATION TESTER: Mastectomy - Present Medications Home Medications: Ambulatory Orders Medication Instructions Recorded Confirmed Losartan Potassium 25 mg PO DAILY PM 05/25/19 09/29/22 Apixaban [Eliquis] 2.5 mg PO BID 11/26/20 09/29/22 dilTIAZem HCL [Diltiazem 24Hr ER 120 mg PO DAILY 11/26/20 09/29/22 (Xr)] Acetaminophen [Tylenol] 975 mg PO Q6H PRN 05/25/22 09/29/22 Aspirin Chewable [St Shaggy 81 mg PO DAILY 05/25/22 09/29/22 Aspirin] Bisacodyl Supp [Dulcolax Supp] 10 mg [place] DAILY PRN 05/25/22 09/29/22 Docusate Sodium [Dok] 100 mg PO BID 05/25/22 09/29/22 Donepezil [Aricept] 5 mg PO DAILY 05/25/22 09/29/22 HYDROcod/ACETAM 5/325 [[place] 5/325] 1 - 2 tablet PO Q6H PRN #7 tablet 05/25/22 09/29/22 Lidocaine Patch 5% [Lidoderm Patch] 1 each TOP DAILY PRN 05/25/22 09/29/22 Mineral Oil [Mineral Oil Enema] 1 ea RC DAILY PRN 05/25/22 09/29/22 Naloxone HCl Nasal [Narcan Nasal] 4 mg NS PRN PRN 05/25/22 09/29/22 Omeprazole Magnesium 20 mg PO DAILY 05/25/22 09/29/22 Senna [Senokot] 8.6 mg PO TID 05/25/22 09/29/22 Sertraline HCl 200 mg PO DAILY 05/25/22 09/29/22 methocarbamoL [Methocarbamol] 500 mg PO UD 05/25/22 09/29/22 oxyCODONE [Roxicodone] 5 mg PO Q4HR PRN 05/25/22 09/29/22 polyethylene glycoL 3350 17 gm PO DAILY 09/29/22 09/29/22 [Polyethylene Glycol 3350] traZODone [Desyrel] 50 mg PO DAILY PM 09/29/22 09/29/22 - Allergies Allergies/Adverse Reactions: Allergies Allergy/AdvReac Type Severity Reaction Status Date / Time No Known Drug Allergies Allergy Verified 05/25/22 17:43 - Social History Does the pt smoke?: No Smoking Status: Never smoker Does the pt drink ETOH?: No Does the pt have substance abuse?: No - Immunizations Immunizations are current?: No Immunizations: TDAP >10years/unknown - POLST Patient has POLST: No PD ED PE NORMAL - General General: No acute distress, Well developed/nourished - HEENT HEENT: Atraumatic - Neck Neck: Supple, no meningeal sign - Cardiac Cardiac: RRR - Respiratory Respiratory: No respiratory distress, Clear bilaterally - Abdomen Abdomen: Normal bowel sounds, Soft, Non tender, Non distended - Rectal Rectal: Other (Chaperoned by Haily and Kala; Appears to have perianal skin tags, small area of abrasion noted; No blood on glove with digital exam, brown-colored stool) - Derm Derm: Warm and dry - Neuro Neuro: Normal speech Results - Vitals Vitals: Vital Signs - 24 hr 10/04/22 10/04/22 06:00 07:39 Temperature 36.4 C L Heart Rate 58 L 65 Respiratory 19 18 Rate Blood Pressure 91/79 150/55 H O2 Saturation 100 98 Oxygen O2 Source Room air - Labs Labs: Laboratory Tests 10/04/22 06:22 WBC 8.7 RBC 3.63 L Hgb 10.9 L Hct 33.3 L MCV 91.7 MCH 30.0 MCHC 32.7 RDW 14.5 Plt Count 241 MPV 8.9 Neut # (Auto) 6.3 Lymph # (Auto) 1.4 L [place] # (Auto) 0.7 Eos # (Auto) 0.2 Baso # (Auto) 0.1 Absolute Nucleated RBC 0.00 Nucleated RBC % 0.0 PD Medical Decision Making - ED course Complexity details: reviewed results, re-evaluated patient ED course: Pt is an 87 year old presenting for evaluation of rectal bleeding - noticed blood when she wiped and on her depends today. No blood in stools or abnormal colored stools. She is anticoagulated. On exam, appears to have an abraded area to the skin near rectum. Digital rectal exam demonstrated normal stool color and no blood. CBC reviewed demonstrating mild anemia with hemoglobin of 10.9. Prior hemogobins have been normal but most recent in our system was 14 years ago. Per history from pt as well as from EMS, no evidence of large bleeding. Also appears to be from external source. Recommend close follow up with PCP as well as general surgery and to hold anticoagulation for 3 days. Pt agreeable to this plan and is advised on strict return precautions. Departure - Departure Disposition: 01 Home, Self Care Clinical Impression: Hematochezia Condition: Stable Instructions: ED Hematochezia Stable Follow-Up: [facility] [Provider Group] Comments: You were evaluated for rectal bleeding. The bleeding appears to be coming from an Abraded area around the rectum. Your hemoglobin today is slightly lower than it was a year ago. At this time the bleeding appears to be minimal. I would recommend considering holding your Eliquis for the next 3 days. I would also recommend close follow-up with our local general surgery office As well as follow-up with your primary care provider in the next week for recheck of your hemoglobin. If at anytime you have any worsening symptoms such as increased bleeding, development of pain, feeling dizzy or lightheaded or have any new concerns then please return to the emergency department. Discharge Date/Time: 10/04/22 08:35
[2022-10-04 06:28] LABS: BASOPHILS # (AUTO) 0.1 10^3/uL (0.0-0.1); BASOPHILS % (AUTO) 0.6 %; EOSINOPHILS # (AUTO) 0.2 10^3/uL (0.0-0.7); EOSINOPHILS % (AUTO) 2.5 %; HCT - HEMATOCRIT 33.3 % (37.0-47.0); HGB - HEMOGLOBIN 10.9 g/dL (12.0-16.0); LYMPHOCYTES # (AUTO) 1.4 10^3/uL (1.5-3.5); LYMPHOCYTES % (AUTO) 15.8 %; MEAN CORPUSCULAR HGB CONC 32.7 g/dL (32.0-36.0); MEAN CORPUSCULAR VOLUME 91.7 fL (81.0-99.0); MEAN PLATELET VOLUME 8.9 fL (7.9-10.8); MONOCYTES # (AUTO) 0.7 10^3/uL (0.0-1.0); MONOCYTES % (AUTO) 8.4 %; NEUTROPHILS # (AUTO) 6.3 10^3/uL (1.5-6.6); NEUTROPHILS % (AUTO) 72.2 %; PLT - PLATELET COUNT 241 10^3/uL (130-450); RED BLOOD COUNT 3.63 10^6/uL (4.20-5.40); RED CELL DISTRIBUTION WIDTH 14.5 % (12.0-15.0); WHITE BLOOD COUNT 8.7 x10^3/uL (4.8-10.8)
[2022-10-04 07:45] VITALS: BP 150/55
== END 2022-10-04 08:35 | disposition home or self-care (01) ==
LOC: EDUNIT# → ED 05:47
DX: S30.817A Abrasion of anus, initial encounter (principal); X58.XXXA Exposure to other specified factors, initial encounter; K92.1 Melena; I48.91 Unspecified atrial fibrillation; Z79.01 Long term (current) use of anticoagulants
CPT/HCPCS: 36415; 85025; 99283

== ENCOUNTER 2022-10-04 08:20 | Outpatient (CLI) | payer MEDICARE, BC | END 2022-10-04 23:59 | disposition home or self-care (01) | LOC: EMS 08:20 | PROVIDERS: ATTEND Emergency Medicine | DX: K64.4 Residual hemorrhoidal skin tags (principal); R41.0 Disorientation, unspecified; F03.90 Unspecified dementia, unspecified severity, without behavioral disturbance, psychotic disturbance, mood disturbance, and anxiety | CPT/HCPCS: A0425; A0428 ==

== ENCOUNTER 2022-11-10 09:14 | Outpatient (CLI) | payer MEDICARE, BC | END 2022-11-10 23:59 | disposition critical access hospital (66) | LOC: EMS 09:14 | DX: S09.90XA Unspecified injury of head, initial encounter (principal); W01.0XXA Fall on same level from slipping, tripping and stumbling without subsequent striking against object, initial encounter; Y92.099 Unspecified place in other non-institutional residence as the place of occurrence of the external cause; Z79.01 Long term (current) use of anticoagulants | CPT/HCPCS: A0425; A0429 ==

== ENCOUNTER 2022-11-10 09:43 | Emergency (ER) | payer MEDICARE, BC ==
--- NOTE | 2022-11-10 09:49 | ED Physician Documentation ---
PD HPI Fall - Stated complaint Stated Complaint: GLF - History obtained from History obtained from: Patient, EMS (I met the EMS at the patient room as they arrived. The patient was without any complaints of pains at this time.) - History of Present Illness Mechanism of injury: Unknown Fall distance: Standing position Timing - onset: Today Injury(ies) location: Head (tenderness back of head; but no headache itself.), Left Uppper Extremity (abrasion elbow). No: Neck (no cervical collar) Pain level max: 0 Pain level now: 0 Associated symptoms: No: LOC, AMS Worsens with: Palpation (back of head). No: Movement Contributing factors: Anticoagulated. No: Intoxicated Similar symptoms before: Has not had sx before Review of Systems Unable to obtain: Dementia Constitutional: denies: Fever, Chills Nose: denies: Rhinorrhea / runny nose, Congestion Cardiac: denies: Chest pain / pressure Respiratory: denies: Dyspnea, Cough GI: denies: Abdominal Pain Neurologic: denies: Altered mental status, Headache PD PAST MEDICAL HISTORY - Past Medical History Cardiovascular: Murmur, Arrhythmia Respiratory: Sleep apnea, CPAP use Neuro: Dementia, Other Endocrine/Autoimmune: None GI: GERD DIRECTOR OF BUSINESS APPLICATIONS: None : None HEENT: Chronic vision loss, Chronic hearing loss Psych: Depression, Anxiety Musculoskeletal: Osteoarthritis Derm: None - Past Surgical History Past Surgical History: Yes /DIRECTOR OF BUSINESS APPLICATIONS: Mastectomy - Present Medications Home Medications: Ambulatory Orders Medication Instructions Recorded Confirmed Losartan Potassium 25 mg PO DAILY PM 05/25/19 09/29/22 Apixaban [Eliquis] 2.5 mg PO BID 11/26/20 09/29/22 dilTIAZem HCL [Diltiazem 24Hr ER 120 mg PO DAILY 11/26/20 09/29/22 (Xr)] Acetaminophen [Tylenol] 975 mg PO Q6H PRN 05/25/22 09/29/22 Aspirin Chewable [St [place]aggy 81 mg PO DAILY 05/25/22 09/29/22 Aspirin] Bisacodyl Supp [Dulcolax Supp] 10 mg [place] DAILY PRN 05/25/22 09/29/22 Docusate Sodium [Dok] 100 mg PO BID 05/25/22 09/29/22 Donepezil [Aricept] 5 mg PO DAILY 05/25/22 09/29/22 HYDROcod/ACETAM 5/325 [[place] 5/325] 1 - 2 tablet PO Q6H PRN #7 tablet 05/25/22 09/29/22 Lidocaine Patch 5% [Lidoderm Patch] 1 each TOP DAILY PRN 05/25/22 09/29/22 Mineral Oil [Mineral Oil Enema] 1 ea RC DAILY PRN 05/25/22 09/29/22 Naloxone HCl Nasal [Narcan Nasal] 4 mg NS PRN PRN 05/25/22 09/29/22 Omeprazole Magnesium 20 mg PO DAILY 05/25/22 09/29/22 Senna [Senokot] 8.6 mg PO TID 05/25/22 09/29/22 Sertraline HCl 200 mg PO DAILY 05/25/22 09/29/22 methocarbamoL [Methocarbamol] 500 mg PO UD 05/25/22 09/29/22 oxyCODONE [Roxicodone] 5 mg PO Q4HR PRN 05/25/22 09/29/22 polyethylene glycoL 3350 17 gm PO DAILY 09/29/22 09/29/22 [Polyethylene Glycol 3350] traZODone [Desyrel] 50 mg PO DAILY PM 09/29/22 09/29/22 - Allergies Allergies/Adverse Reactions: Allergies Allergy/AdvReac Type Severity Reaction Status Date / Time No Known Drug Allergies Allergy Verified 11/10/22 09:52 - Social History Does the pt smoke?: No Smoking Status: Never smoker Does the pt drink ETOH?: No Does the pt have substance abuse?: No - Immunizations Immunizations are current?: No Immunizations: TDAP >10years/unknown - POLST Patient has POLST: No PD ED PE NORMAL - Vitals Vital signs reviewed: Yes - General General: Alert and oriented X 3, No acute distress, Well developed/nourished - HEENT HEENT: PERRL, EOMI - Neck Neck: Supple, no meningeal sign, No bony TTP, Other (some tender left occiput area with deformity.) - Respiratory Respiratory: Clear bilaterally, Other (no chestwall tednerness. ) - Abdomen Abdomen: Soft, Non tender PD ED PE EXPANDED - General General: No acute distress, Well developed/nourished Results - Vitals Vitals: Vital Signs - 24 hr 11/10/22 11/10/22 09:49 13:51 Temperature 36.5 C 36.6 C Heart Rate 62 63 Respiratory 18 14 Rate Blood Pressure 159/85 H 156/64 H O2 Saturation 99 98 Oxygen O2 Source Room air - Labs Labs: Laboratory Tests 11/10/22 11/10/22 10:26 10:26 WBC 10.1 RBC 3.97 L Hgb 11.9 L Hct 35.7 L MCV 89.9 MCH 30.0 MCHC 33.3 RDW 13.1 Plt Count 225 MPV 9.1 Neut # (Auto) 7.8 H Lymph # (Auto) 1.4 L [place] # (Auto) 0.6 Eos # (Auto) 0.2 Baso # (Auto) 0.1 Absolute Nucleated RBC 0.00 Nucleated RBC % 0.0 Sodium 135 Potassium 3.5 Chloride 106 Carbon Dioxide 23 Anion Gap 6.0 BUN 16 Creatinine 0.7 Estimated GFR (MDRD) 79 L Glucose 98 Calcium 9.7 Magnesium 1.8 Total Bilirubin 0.4 AST 16 ALT 10 Alkaline Phosphatase 50 Total Creatine Kinase 123 Total Protein 6.7 Albumin 3.9 Globulin 2.8 Albumin/Globulin Ratio 1.4 Lipase 14 - Rads (name of study) head CT Relevant Findings:: Prelim report reviewed, EMP independent interpretation of test (no acute ICH nor focal swelling. ) PD Medical Decision Making - ED course Complexity details: reviewed results (upon return from CT, then patient was getting up for commode and stated hrgite), re-evaluated patient (upon return from CT, she needed to use commode. States left hip hurt with walking. Can get xray. ), considered differential, d/w patient Reviewed Lab Results: head CT and hip xray without acute injuries. Patient is feeling okay. She had no pain with rotational and impaction testing on exam. Low suspicion for occult hip injury. Departure - Departure Disposition: 01 Home, Self Care Clinical Impression: Fall, Head contusion, Elbow abrasion Condition: Stable Record reviewed to determine appropriate education?: Yes Comments: Your basic blood tests and vital signs and exam are good here. No obvious abnormality to account for fainting etc. You do have some tenderness and swelling in the back of her head and abrasion on your elbow suggesting a fall of some sort. We did do a CT of your head and there is no signs of bleeding. The elbow abrasion is mild and can be treated with just ointment and Band-Aid. Continue usual medications diet and activity. Recheck if needed. Forms: PCP List Discharge Date/Time: 11/10/22 14:48
[2022-11-10 10:35] LABS: BASOPHILS # (AUTO) 0.1 10^3/uL (0.0-0.1); BASOPHILS % (AUTO) 0.7 %; EOSINOPHILS # (AUTO) 0.2 10^3/uL (0.0-0.7); EOSINOPHILS % (AUTO) 1.5 %; HCT - HEMATOCRIT 35.7 % (37.0-47.0); HGB - HEMOGLOBIN 11.9 g/dL (12.0-16.0); LYMPHOCYTES # (AUTO) 1.4 10^3/uL (1.5-3.5); LYMPHOCYTES % (AUTO) 13.8 %; MEAN CORPUSCULAR HGB CONC 33.3 g/dL (32.0-36.0); MEAN CORPUSCULAR VOLUME 89.9 fL (81.0-99.0); MEAN PLATELET VOLUME 9.1 fL (7.9-10.8); MONOCYTES # (AUTO) 0.6 10^3/uL (0.0-1.0); MONOCYTES % (AUTO) 6.3 %; NEUTROPHILS # (AUTO) 7.8 10^3/uL (1.5-6.6); NEUTROPHILS % (AUTO) 77.5 %; PLT - PLATELET COUNT 225 10^3/uL (130-450); RED BLOOD COUNT 3.97 10^6/uL (4.20-5.40); RED CELL DISTRIBUTION WIDTH 13.1 % (12.0-15.0); WHITE BLOOD COUNT 10.1 x10^3/uL (4.8-10.8)
--- NOTE | 2022-11-10 10:38 | CT Report ---
PROCEDURE: HEAD WO INDICATIONS: fall, stuck head; on DOAC TECHNIQUE: Noncontrast 4.5 mm thick angled axial sections acquired from the foramen magnum to the vertex. For r adiation dose reduction, the following was used: automated exposure control, adjustment of mA and/or kV according to patient size. COMPARISON: None. FINDINGS: Image quality: Excellent. CSF spaces: Basal cisterns are patent. No extra-axial fluid collections. Ventricles are normal in size and shape. Brain: No midline shift. No intracranial masses or hemorrhage. Chen-white matter interface is norm al. Age-related volume loss and severe small vessel ischemic change. Skull and face: Calvarium and visualized facial bones are intact, without suspicious lesions. Sinuses: Visualized sinuses and mastoids are clear. IMPRESSION: 1. Age-related volume loss and severe small vessel ischemic change. 2. No acute intracranial abnormality. Reviewed by: Ron Coon MD on 11/10/2022 10:37 AM PDT Approved by: Ron Coon MD on 11/10/2022 10:37 AM PDT Station ID: [id number]
[2022-11-10 10:47] LABS: ALBUMIN 3.9 g/dL (3.2-5.5); ALBUMIN/GLOBULIN RATIO 1.4 (1.0-2.2); BILIRUBIN,TOTAL 0.4 mg/dL (0.2-1.0); CALCIUM 9.7 mg/dL (8.5-10.3); CREATININE 0.7 mg/dL (0.6-1.3); MAGNESIUM 1.8 mg/dL (1.7-2.3); POTASSIUM 3.5 mmol/L (3.5-4.5); TOTAL PROTEIN 6.7 g/dL (6.4-8.9)
--- NOTE | 2022-11-10 14:16 | XRAY Report ---
PROCEDURE: Hip w/Pelvis 2-3V LT INDICATIONS: fall, pain with standing TECHNIQUE: AP pelvis with lateral view(s) of the left hip(s). COMPARISON: None. FINDINGS: Bones: No fractures or dislocations. No suspicious bony lesions. Degenerative changes are present within the hips bilaterally. Soft tissues: No suspicious soft tissue calcifications or masses. IMPRESSION: No visualized acute fracture or dislocation. However, occult injury cannot be excluded. Recommend nuria rt interval imaging follow-up in 7-10 days as clinically indicated for additional evaluation. Reviewed by: Nicolasa Ta MD on 11/10/2022 2:14 PM PDT Approved by: Nicolasa Ta MD on 11/10/2022 2:14 PM PDT Station ID: [id number]
[2022-11-10 14:37] VITALS: BP 156/64
== END 2022-11-10 14:48 | disposition home or self-care (01) ==
LOC: EDUNIT# → ED 09:43
DX: S00.93XA Contusion of unspecified part of head, initial encounter (principal); S50.312A Abrasion of left elbow, initial encounter; M25.552 Pain in left hip; W18.30XA Fall on same level, unspecified, initial encounter
CPT/HCPCS: 36415; 80053; 82550; 83690; 83735; 85025; 99283; 99284

== ENCOUNTER 2022-11-10 13:17 | Outpatient (CLI) | payer MEDICARE, BC | END 2022-11-10 23:59 | disposition home or self-care (01) | LOC: EMS 13:17 | PROVIDERS: ATTEND Emergency Medicine | DX: R41.0 Disorientation, unspecified (principal); F03.90 Unspecified dementia, unspecified severity, without behavioral disturbance, psychotic disturbance, mood disturbance, and anxiety | CPT/HCPCS: A0425; A0428 ==

== ENCOUNTER 2022-11-11 09:53 | Outpatient (CLI) | payer MEDICARE, BC | END 2022-11-11 23:59 | disposition critical access hospital (66) | LOC: EMS 09:53 | DX: S09.90XA Unspecified injury of head, initial encounter (principal); W06.XXXA Fall from bed, initial encounter; Y92.092 Bedroom in other non-institutional residence as the place of occurrence of the external cause; Z79.01 Long term (current) use of anticoagulants | CPT/HCPCS: A0425; A0429 ==

== ENCOUNTER 2022-11-11 10:21 | Emergency (ER) | payer MEDICARE, BC ==
[2022-11-11] MEDS ORDERED: ACETAMINOPHEN 325 MG TABLET PO STA (10:31)
--- NOTE | 2022-11-11 10:32 | ED Physician Documentation ---
PD HPI Fall - Stated complaint Stated Complaint: FOUND DOWN - History obtained from History obtained from: Patient, EMS, Caregiver - History of Present Illness Mechanism of injury: Unknown (patient says she has walker but not clear if she was using it. No report from EMS about its proximity to patient. Pt with short term memory difficulty/dementia. She is not sure if felt pre-syncope prior to being on floor or just stumbled. Has tenderness back of head.) Fall distance: Standing position Where injury occurred: Home ([facility] Timing - onset: How many hours ago (about 1 hour prior to here. Pt denied headache enroute.), Today Injury(ies) location: Head Pain level max: 0 Pain level now: 0 Quality of pain: Pain, Aching Associated symptoms: No: LOC, Neck pain, Weakness, Paresthesias Worsens with: Palpation. No: Movement Contributing factors: Anticoagulated. No: Intoxicated Similar symptoms before: No diagnosis (had fall apparently yesterday and seen in ER with normal head CT. was doing improved from ER visit yesterday. Was being checked every 2 hours by staff there. Found on floor near bed. No comment conveyed about walker proximity to her.) Recently seen: Emergency Dept Review of Systems Unable to obtain: Dementia PD PAST MEDICAL HISTORY - Past Medical History Cardiovascular: Murmur, Arrhythmia Respiratory: Sleep apnea, CPAP use Neuro: Dementia, Other Endocrine/Autoimmune: None GI: GERD REALTY SPECIALIST: None : None HEENT: Chronic vision loss, Chronic hearing loss Psych: Depression, Anxiety Musculoskeletal: Osteoarthritis Derm: None - Past Surgical History Past Surgical History: Yes /REALTY SPECIALIST: Mastectomy - Present Medications Home Medications: Ambulatory Orders Medication Instructions Recorded Confirmed Losartan Potassium 25 mg PO DAILY PM 05/25/19 09/29/22 Apixaban [Eliquis] 2.5 mg PO BID 11/26/20 09/29/22 dilTIAZem HCL [Diltiazem 24Hr ER 120 mg PO DAILY 11/26/20 09/29/22 (Xr)] Acetaminophen [Tylenol] 975 mg PO Q6H PRN 05/25/22 09/29/22 Aspirin Chewable [St Shaggy 81 mg PO DAILY 05/25/22 09/29/22 Aspirin] Bisacodyl Supp [Dulcolax Supp] 10 mg [place] DAILY PRN 05/25/22 09/29/22 Docusate Sodium [Dok] 100 mg PO BID 05/25/22 09/29/22 Donepezil [Aricept] 5 mg PO DAILY 05/25/22 09/29/22 HYDROcod/ACETAM 5/325 [[place] 5/325] 1 - 2 tablet PO Q6H PRN #7 tablet 05/25/22 09/29/22 Lidocaine Patch 5% [Lidoderm Patch] 1 each TOP DAILY PRN 05/25/22 09/29/22 Mineral Oil [Mineral Oil Enema] 1 ea RC DAILY PRN 05/25/22 09/29/22 Naloxone HCl Nasal [Narcan Nasal] 4 mg NS PRN PRN 05/25/22 09/29/22 Omeprazole Magnesium 20 mg PO DAILY 05/25/22 09/29/22 Senna [Senokot] 8.6 mg PO TID 05/25/22 09/29/22 Sertraline HCl 200 mg PO DAILY 05/25/22 09/29/22 methocarbamoL [Methocarbamol] 500 mg PO UD 05/25/22 09/29/22 oxyCODONE [Roxicodone] 5 mg PO Q4HR PRN 05/25/22 09/29/22 polyethylene glycoL 3350 17 gm PO DAILY 09/29/22 09/29/22 [Polyethylene Glycol 3350] traZODone [Desyrel] 50 mg PO DAILY PM 09/29/22 09/29/22 - Allergies Allergies/Adverse Reactions: Allergies Allergy/AdvReac Type Severity Reaction Status Date / Time No Known Drug Allergies Allergy Verified 11/11/22 10:31 - Social History Does the pt smoke?: No Smoking Status: Never smoker Does the pt drink ETOH?: No Does the pt have substance abuse?: No - Immunizations Immunizations are current?: No Immunizations: TDAP >10years/unknown - POLST Patient has POLST: No PD ED PE NORMAL - Vitals Vital signs reviewed: Yes - General General: Well developed/nourished. No: Alert and oriented X 3 (person and place, not sure of date, but aware of November. ) - HEENT HEENT: Other (there is mild swelling and tenderness left occiput, which was there yesterday after first fall. ) - Neck Neck: Supple, no meningeal sign, No bony TTP, No adenopathy, Other (no cervical collar on patient on ED arrival. ) - Cardiac Cardiac: RRR, No murmur - Respiratory Respiratory: Clear bilaterally - Abdomen Abdomen: Soft, Non tender - Back Back: No CVA TTP - Derm Derm: Normal color, Warm and dry - Neuro Neuro: No motor deficit, No sensory deficit, Normal speech. No: Alert and oriented X 3 (person and place, and month) Eye Opening: Spontaneous Motor: Obeys Commands Verbal: Oriented GCS Score: 15 Results - Vitals Vitals: Vital Signs - 24 hr 11/11/22 11/11/22 11/11/22 10:25 12:04 13:04 Temperature 36.6 C Heart Rate 63 72 75 Respiratory 20 18 18 Rate Blood Pressure 124/82 H 126/102 H 141/104 H O2 Saturation 100 97 98 11/11/22 14:00 Temperature 36.4 C L Heart Rate 92 Respiratory 18 Rate Blood Pressure 140/66 H O2 Saturation 94 Oxygen O2 Source Room air - EKG (time done) 11:02 EKG releavant findings:: EKG personally interpreted by author of this note. Relevant findings are: Rate: Rate (enter#) (61) Rhythm: NSR [place]: Normal Intervals: Normal [place], LBBB QRS: LVH Ischemia: T wave inversion (anterior leads, concordant with QRS though.) - Labs Labs: Laboratory Tests 11/11/22 11/11/22 10:30 11:22 WBC 11.0 H RBC 4.96 Hgb 14.7 Hct 44.1 MCV 88.9 MCH 29.6 MCHC 33.3 RDW 13.1 Plt Count 248 MPV 9.3 Neut # (Auto) 8.8 H Lymph # (Auto) 1.4 L [place] # (Auto) 0.7 Eos # (Auto) 0.1 Baso # (Auto) 0.1 Absolute Nucleated RBC 0.00 Nucleated RBC % 0.0 Sodium 137 Potassium 4.0 Chloride 104 Carbon Dioxide 25 Anion Gap 8.0 BUN 14 Creatinine 0.7 Estimated GFR (MDRD) 79 L Glucose 94 Calcium 10.1 Magnesium 2.0 - Rads (name of study) head CT Relevant Findings:: Prelim report reviewed, EMP independent interpretation of test (no ICH nor acute abnormalities. Volume loss. ) chest xray Relevant Findings:: Prelim report reviewed, EMP independent interpretation of test (no acute process. ) PD Medical Decision Making - ED course Complexity details: considered differential (The patient appears well here today. She denies any pains including headache chest pain or belly pain. Similar to yesterday's appearance. She did apparently fall again so repeat CT to her head. Other basic labs are normal.), d/w patient Reviewed Lab Results: electrolytes, blood sugar, blood count, renal funciton are okay. ECG showing LVH and LBBB. Sinus rhythm. Head CT without ICH. ED course: she yesterday and today was able to walk well with walker, which is what she uses reportedly. Not clear if she is not using this and falling. No apparent indication for reason for fainting/syncope. She does not remember the ev ents/circumstances around the time of ending on the floor. She does not have any chest pain, dyspnea, leg edema, wheezing. Blood sugar and lytes are good. Departure - Departure Disposition: 01 Home, Self Care Clinical Impression: Fall Condition: Stable Record reviewed to determine appropriate education?: Yes Comments: Your head CT as well as blood tests and chest x-ray are normal here. No acute abnormality found (similar to yesterday). Unclear why you were found on the floor (falling versus fainting). No signs of abnormalities in your blood tests or vital signs here. No obvious injury found. Continue usual medications. Be sure to use a walker with ambulation to reduce chance of falling. Follow-up with your primary care as needed. Forms: PCP List Discharge Date/Time: 11/11/22 14:34
[2022-11-11 10:47] LABS: BASOPHILS # (AUTO) 0.1 10^3/uL (0.0-0.1); BASOPHILS % (AUTO) 0.5 %; EOSINOPHILS # (AUTO) 0.1 10^3/uL (0.0-0.7); EOSINOPHILS % (AUTO) 0.9 %; HCT - HEMATOCRIT 44.1 % (37.0-47.0); HGB - HEMOGLOBIN 14.7 g/dL (12.0-16.0); LYMPHOCYTES # (AUTO) 1.4 10^3/uL (1.5-3.5); LYMPHOCYTES % (AUTO) 12.4 %; MEAN CORPUSCULAR HEMOGLOBIN 29.6 pg (27.0-31.0); MEAN CORPUSCULAR HGB CONC 33.3 g/dL (32.0-36.0); MEAN CORPUSCULAR VOLUME 88.9 fL (81.0-99.0); MEAN PLATELET VOLUME 9.3 fL (7.9-10.8); MONOCYTES # (AUTO) 0.7 10^3/uL (0.0-1.0); MONOCYTES % (AUTO) 6.2 %; NEUTROPHILS # (AUTO) 8.8 10^3/uL (1.5-6.6); NEUTROPHILS % (AUTO) 79.8 %; PLT - PLATELET COUNT 248 10^3/uL (130-450); RED BLOOD COUNT 4.96 10^6/uL (4.20-5.40); RED CELL DISTRIBUTION WIDTH 13.1 % (12.0-15.0)
--- NOTE | 2022-11-11 11:31 | CT Report ---
PROCEDURE: HEAD WO INDICATIONS: fall, struck head, on DOAC TECHNIQUE: Noncontrast 4.5 mm thick angled axial sections acquired from the foramen magnum to the vertex. For r adiation dose reduction, the following was used: automated exposure control, adjustment of mA and/or kV according to patient size. COMPARISON: None. FINDINGS: Image quality: Excellent. The ventricular system and cortical sulci demonstrate atrophy, consistent for patient's stated age. There is prominence of the ventricular system in relation to gyral and sulcal atrophy. There are area s of hypodensity in the periventricular and subcortical white matter. There is no acute intra or ext ra-axial fluid collection. No acute hemorrhage, mass lesion or midline shift. Brainstem is unremark able. Globes are symmetrical. Sinuses are aerated. Osseous structures are intact. IMPRESSION: 1. No acute intracranial process. 2. Moderate to severe atrophy and chronic microvascular ischemic changes. 3. Ventricular system prominence. This could be related to a more central atrophy pattern. However, t here are presence of symptoms related to normal pressure hydrocephalus, further evaluation is recomme nded. Reviewed by: Nicolasa Ta MD on 11/11/2022 11:30 AM PDT Approved by: Nicolasa Ta MD on 11/11/2022 11:30 AM PDT Station ID: [id number]
--- NOTE | 2022-11-11 11:35 | XRAY Report ---
PROCEDURE: Chest 1 View X-Ray INDICATIONS: fall TECHNIQUE: One view of the chest was acquired. COMPARISON: None FINDINGS: Surgical changes and devices: None. Lungs and pleura: No pleural effusions or pneumothorax. Lungs are clear. Mediastinum: Mediastinal contours appear normal. Heart size is enlarged. Bones and chest wall: No suspicious bony lesions. Overlying soft tissues appear unremarkable. IMPRESSION: No acute cardiopulmonary process. Reviewed by: Nicolasa Ta MD on 11/11/2022 11:34 AM PDT Approved by: Nicolasa Ta MD on 11/11/2022 11:34 AM PDT Station ID: [id number]
[2022-11-11 11:42] LABS: CALCIUM 10.1 mg/dL (8.5-10.3); CREATININE 0.7 mg/dL (0.6-1.3)
[2022-11-11 14:16] VITALS: BP 140/66
== END 2022-11-11 14:34 | disposition home or self-care (01) ==
LOC: EDUNIT# → ED 10:21
DX: Z04.3 Encounter for examination and observation following other accident (principal)
CPT/HCPCS: 36415; 70450; 71045; 80048; 83735; 85025; 93005; 99283; 99284; A9270

== ENCOUNTER 2022-11-11 14:38 | Outpatient (CLI) | payer MEDICARE, BC | END 2022-11-11 23:59 | disposition home or self-care (01) | LOC: EMS 14:38 | PROVIDERS: ATTEND Emergency Medicine | DX: R41.0 Disorientation, unspecified (principal); F03.90 Unspecified dementia, unspecified severity, without behavioral disturbance, psychotic disturbance, mood disturbance, and anxiety | CPT/HCPCS: A0425; A0428 ==

== ENCOUNTER 2022-11-16 09:44 | Outpatient (CLI) | payer MEDICARE, BC | END 2022-11-16 23:59 | disposition critical access hospital (66) | LOC: EMS 09:44 | DX: R29.6 Repeated falls (principal); Z79.01 Long term (current) use of anticoagulants | CPT/HCPCS: A0425; A0429 ==

== ENCOUNTER 2022-11-16 10:10 | Emergency (ER) | payer MEDICARE, BC ==
--- NOTE | 2022-11-16 10:17 | ED Physician Documentation ---
History of Present Illness - Stated complaint Stated Complaint: GLF - Additonal information Additional information: Patient 87-year-old female presenting from local area care facility after 2 falls. EMS reports fell last night at 3 AM and again this morning. They were uncertain whether or not they were witnessed events. She does have history of chronic anticoagulation on Eliquis. She is amnestic to events. Denies any acute complaints at this time. History is limited by her dementia. Review of Systems Unable to obtain: Dementia PD PAST MEDICAL HISTORY - Past Medical History Cardiovascular: Murmur, Arrhythmia Respiratory: Sleep apnea, CPAP use Neuro: Dementia, Other Endocrine/Autoimmune: None GI: GERD CARE MANAGEMENT COORDINATOR: None : None HEENT: Chronic vision loss, Chronic hearing loss Psych: Depression, Anxiety Musculoskeletal: Osteoarthritis Derm: None - Past Surgical History Past Surgical History: Yes /CARE MANAGEMENT COORDINATOR: Mastectomy - Present Medications Home Medications: Ambulatory Orders Medication Instructions Recorded Confirmed Losartan Potassium 25 mg PO DAILY PM 05/25/19 09/29/22 Apixaban [Eliquis] 2.5 mg PO BID 11/26/20 09/29/22 dilTIAZem HCL [Diltiazem 24Hr ER 120 mg PO DAILY 11/26/20 09/29/22 (Xr)] Acetaminophen [Tylenol] 975 mg PO Q6H PRN 05/25/22 09/29/22 Aspirin Chewable [St Shaggy 81 mg PO DAILY 05/25/22 09/29/22 Aspirin] Bisacodyl Supp [Dulcolax Supp] [address] DAILY PRN 05/25/22 09/29/22 Docusate Sodium [Dok] 100 mg PO BID 05/25/22 09/29/22 Donepezil [Aricept] 5 mg PO DAILY 05/25/22 09/29/22 HYDROcod/ACETAM 5/325 [[place] 5/325] 1 - 2 tablet PO Q6H PRN #7 tablet 05/25/22 09/29/22 Lidocaine Patch 5% [Lidoderm Patch] 1 each TOP DAILY PRN 05/25/22 09/29/22 Mineral Oil [Mineral Oil Enema] 1 ea RC DAILY PRN 05/25/22 09/29/22 Naloxone HCl Nasal [Narcan Nasal] 4 mg NS PRN PRN 05/25/22 09/29/22 Omeprazole Magnesium 20 mg PO DAILY 05/25/22 09/29/22 Senna [Senokot] 8.6 mg PO TID 05/25/22 09/29/22 Sertraline HCl 200 mg PO DAILY 05/25/22 09/29/22 methocarbamoL [Methocarbamol] 500 mg PO UD 05/25/22 09/29/22 oxyCODONE [Roxicodone] 5 mg PO Q4HR PRN 05/25/22 09/29/22 polyethylene glycoL 3350 17 gm PO DAILY 09/29/22 09/29/22 [Polyethylene Glycol 3350] traZODone [Desyrel] 50 mg PO DAILY PM 09/29/22 09/29/22 - Allergies Allergies/Adverse Reactions: Allergies Allergy/AdvReac Type Severity Reaction Status Date / Time No Known Drug Allergies Allergy Verified 11/16/22 10:36 - Social History Does the pt smoke?: No Smoking Status: Never smoker Does the pt drink ETOH?: No Does the pt have substance abuse?: No - Immunizations Immunizations are current?: No Immunizations: TDAP >10years/unknown - POLST Patient has POLST: No PD ED PE NORMAL - Vitals Vital signs reviewed: Yes - General General: No acute distress - HEENT HEENT: Atraumatic, PERRL, EOMI, Ears normal, Moist mucous membranes - Neck Neck: Other (C-collar in place) - Cardiac Cardiac: RRR - Respiratory Respiratory: No respiratory distress - Abdomen Abdomen: Normal bowel sounds, Non tender - Rectal Rectal: Deferred - Back Back: No CVA TTP - Derm Derm: Normal color - Extremities Extremities: No deformity - Neuro 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 Evaluated initially in ambulance bay and patient was transported directly to CT. CT head and C-spine nonacute. Patient is amnestic to events however per EMS report she is at her baseline mentation. She had a normal blood glucose recorded in the field. No focal or lateralizing neurologic deficits.No other indications significant injury. CT head negative for acute abnormality. Slightly enlarged ventricles with concern for normal pressure hydrocephalus. LP is considered but patient chronically anticoagulated. Will need careful follow-up on outpatient basis. Discussed directly with piercer operator who works at her care facility. Discussed precautions to decrease risk for falls as well as importance of careful follow-up with primary care. Clear return precautions given. Departure - Departure Disposition: Home, Self Care Clinical Impression: Fall, Chronic anticoagulation, Abnormal head CT Instructions: Falls Risks Prevent Comments: Thank you for allowing us to care for you today at [facility]. Today in the emergency department your evaluated for any possible life- threatening medical emergency. All the testing performed in the emergency department today including the CT scan of your head and cervical spine did not show any acute or life-threatening injury. 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 It is very important that you follow-up with your primary care doctor concerning this finding. They will likely wish to evaluate you further in the near future. In the meantime I recommend using a walker or other ambulatory assist devices at home. Please walk slowly And as safely as possible. If it anytime you have new or worsening symptoms please not hesitate to return. Forms: PCP List Discharge Date/Time: 11/16/22 12:58
--- NOTE | 2022-11-16 10:51 | CT Report ---
PROCEDURE: CERVICAL SPINE WO INDICATIONS: Fall TECHNIQUE: Noncontrast 3 mm thick sections acquired from the skull base to the T4 level. Sagittal and coronal r eformats were then constructed. For radiation dose reduction, the following was used: automated exp osure control, adjustment of mA and/or kV according to patient size. COMPARISON: 06/26/2021. Correlation is also made with the accompanying head CT. FINDINGS: Image quality: Excellent. Bones: No fractures or dislocations. Visualized superior ribs are intact. Minimal C2-C3 anterolisthesis is seen. Minimal retrolisthesis is seen at C3-C4 moderate posterior dis placement and C4 minus C4-C5, and C5-C6. Moderate disc space narrowing seen at C6-C7 and at C7-T1. Multiple levels of posterior directed endplate osteophytes are seen, which are worst at the C5-C6 level. Endplate irr egularity and sclerosis can be seen, which are worst at C3-C4. Soft tissues: Prevertebral soft tissues are normal in thickness. No paravertebral hematomas. No ap ical pneumothoraces. Atherosclerotic calcification is seen. Mild emphysematous changes can be seen a t the visualized lung apices. IMPRESSION: Negative for acute fracture. Advanced cervical spine degenerative change can be seen. Reviewed by: Maxx Cotton MD on 11/16/2022 9:50 AM SCARLET Approved by: Maxx Cotton MD on 11/16/2022 9:50 AM SCARLET Station ID: [id number]
--- NOTE | 2022-11-16 10:54 | CT Report ---
PROCEDURE: HEAD WO INDICATIONS: Fall of eloquis TECHNIQUE: Noncontrast 4.5 mm thick angled axial sections acquired from the foramen magnum to the vertex. For r adiation dose reduction, the following was used: automated exposure control, adjustment of mA and/or kV according to patient size. COMPARISON: 11/11/2022, 11/10/2022, 05/25/2022. Correlation is also made with the company cervical spine CT. FINDINGS: Image quality: Motion artifact is noted. CSF spaces: Basal cisterns are patent. No extra-axial fluid collections. Ventricles are stable, ye t abnormally prominent and more prominent than would be expected, given the degree of sulcal atrophy. . Brain: No midline shift. No intracranial masses or hemorrhage. Chen-white matter interface is norm al. Age-appropriate brain parenchymal volume loss and chronic small vessel ischemic change can be se en. Skull and face: Calvarium and visualized facial bones are intact, without suspicious lesions. Sinuses: Visualized sinuses and mastoids are clear. IMPRESSION: Negative for acute intracranial abnormality. The lateral ventricles are abnormally prominent and are more prominent than would be expected, given the degree of underlying sulcal atrophy. Please consider normal pressure hydrocephalus. Reviewed by: Maxx Cotton MD on 11/16/2022 9:53 AM SCARLET Approved by: Maxx Cotton MD on 11/16/2022 9:53 AM SCARLET Station ID: [id number]
[2022-11-16 13:06] VITALS: BP 177/90; O2SAT 100
== END 2022-11-16 12:58 | disposition home or self-care (01) ==
LOC: EDUNIT# → ED 10:10
DX: Z04.3 Encounter for examination and observation following other accident (principal); F03.90 Unspecified dementia, unspecified severity, without behavioral disturbance, psychotic disturbance, mood disturbance, and anxiety; Z79.01 Long term (current) use of anticoagulants; W19.XXXA Unspecified fall, initial encounter
CPT/HCPCS: 99284